=== PATIENT | female | born 1970 | race Caucasian/White ===

== ENCOUNTER 2021-03-01 14:47 | Outpatient (REF) | payer BC, SELFPAY ==
--- NOTE | ~2021-03-01 | XR_ITS ---
EXAMINATION: XR KNEE STANDING, BILATERAL XR KNEE, RIGHT CLINICAL INFORMATION: Right knee pain. COMPARISON: None TECHNIQUE: AP standing view of both knees and lateral and sunrise views of the right knee FINDINGS: AP film of both knees demonstrates maintenance of the medial and lateral joint space compartments. There is some irregularity of the right lateral tibial plateau. There is a small right knee effusion. There is spurring undersurface of the patella at the patellofemoral joint. No joint space narrowing at the patellofemoral joint is noted. XR/XR knee standing BI IMPRESSION: Patellofemoral joint degenerative change with small right knee effusion. There is some mild irregularity without significant loss of height of the lateral tibial plateau. This may be related to chronic injury.
--- NOTE | ~2021-03-01 | XR_ITS ---
EXAMINATION: XR KNEE STANDING, BILATERAL XR KNEE, RIGHT CLINICAL INFORMATION: Right knee pain. COMPARISON: None TECHNIQUE: AP standing view of both knees and lateral and sunrise views of the right knee FINDINGS: AP film of both knees demonstrates maintenance of the medial and lateral joint space compartments. There is some irregularity of the right lateral tibial plateau. There is a small right knee effusion. There is spurring undersurface of the patella at the patellofemoral joint. No joint space narrowing at the patellofemoral joint is noted. XR/XR knee RT 2V IMPRESSION: Patellofemoral joint degenerative change with small right knee effusion. There is some mild irregularity without significant loss of height of the lateral tibial plateau. This may be related to chronic injury.
== END 2021-03-01 14:48 | disposition home or self-care (01) ==
LOC: HO.HOSX 14:47
PROVIDERS: Visit Provider Orthopaedic Surgery
DX: S83.422A Sprain of lateral collateral ligament of left knee, initial encounter (principal); M25.561 Pain in right knee; X58.XXXA Exposure to other specified factors, initial encounter; Y93.9 Activity, unspecified; Y92.9 Unspecified place or not applicable; Y99.9 Unspecified external cause status
CPT/HCPCS: 73560; 73565

== ENCOUNTER 2022-11-17 08:42 | Emergency (ER) | payer BC, SELFPAY ==
--- NOTE | ~2022-11-17 | CT_ITS ---
EXAMINATION: Head, cervical spine and facial bone CT without IV contrast CLINICAL INFORMATION: Trauma COMPARISON: None. TECHNIQUE: Axial images through the head, cervical spine and facial bones without IV contrast. Sagittal and coronal reconstructions on the technologist workstation were performed. This CT examination was performed using dose optimization techniques as appropriate, variously including the following: *Automated exposure control *Adjustment of mA and/or kV according to patient size (this includes techniques or standardized protocols for targeted exams where dose is matched to indication/reason for exam; i.e. extremities or head) *Use of iterative reconstruction technique DLP 173 7 mg/cm FINDINGS: Head CT: There is no evidence of an extra-axial collection. There is no evidence of intra or extra-axial hemorrhage. The ventricles and extra-axial CSF spaces are slightly prominent suggestive of mild generalized atrophy. There is nonspecific periventricular white matter disease. No mass, mass effect or infarct. No skull fracture. Small air-fluid level left maxillary sinus. Preseptal soft tissue swelling over the left orbit. Left orbital floor fracture with entrapment. Facial bone CT: Exam is limited due to artifact from motion. There is a comminuted displaced fracture of the left orbital floor. Fracture fragments are depressed maximum measuring 7 mm. There is evidence of entrapment. There is question of a fracture of the nasal spine of maxilla. No other fracture is seen. There is a small air-fluid level in the left maxillary sinus. Paranasal sinuses are otherwise clear. There is preseptal soft tissue swelling over the left orbit. Post septal soft tissues are normal. Mastoid air cells and middle ears are clear. Temporomandibular joints are normal. Cervical spine: The skull base through C6 vertebral bodies are visualized. The C7 vertebral body is not visualized. Bone alignment is normal. No fracture or dislocation. Mild degenerative spondylosis at C4-C5 and C5-C6 and possibly C6-C7. There are degenerative changes at the C1 dens articulation. Prevertebral soft tissues are normal. CT/CT cervical spine wo IV con IMPRESSION: Head CT: No acute intracranial findings. Facial bone CT: Comminuted depressed fracture of the left orbital or and entrapment Arturo significant preseptal soft tissue swelling over the left orbit. Question tiny avulsion fracture of the right nasal spine of maxilla. Cervical spine CT: Incomplete exam. C7 vertebral body not visualized. No fracture is seen. Mild degenerative changes. Additional through the lower cervical and upper thoracic spine should be considered if clinically indicated.
[2022-11-17 08:48] VITALS: BP 186/81; PULSE 90; RESP 14; TEMP 36.6; O2SAT 96; BMI 40.8
--- NOTE | 2022-11-17 09:05 | ED.FALL ---
HPI - Fall General Chief Complaint: Fall Stated Complaint: Fall w/ head strike per EMS Source: patient Mode of arrival: ambulatory Limitations: no limitations History of Present Illness HPI Narrative: presented to ED c/o fall,slipped and fell,no syncope,hit head in the ground,has hematoma left orbit complaint: fall Onset (ago): hour(s) (1) Fall from: standing Fall witnessed: no Loss of consciousness: none Prolonged down time: no Related Data Home Medications Medication Instructions Recorded Confirmed amlodipine 5 mg-benazepril 10 mg 1 cap PO DAILY 03/01/21 capsule atorvastatin 40 mg tablet 40 mg PO DAILY 03/01/21 beclomethasone dipropionate 80 1 inh PO BID 03/01/21 mcg/actuation HFA breath activated aerosol benzonatate 100 mg capsule 100 mg PO TID 03/01/21 bupropion HCl 300 mg 24 hr tablet, 300 mg PO DAILY 03/01/21 extended release cyclobenzaprine 10 mg tablet 10 mg PO TID PRN 03/01/21 llxzyvhvrpcdrbl-LJC-vytjrhqvrjlhy packet PO 03/01/21 50 mg-60 mg-1,000 mg oral packet dulaglutide 0.75 mg/0.5 mL 1.5 mg subcut QWEEK 03/01/21 subcutaneous pen injector erythromycin 5 mg/gram (0.5 %) eye 0 mg ophthalmic (eye) DIRECTED 03/01/21 ointment escitalopram oxalate 10 mg tablet mg PO 03/01/21 flash glucose sensor #1 ea 03/01/21 fluticasone propionate 50 1 spray intranasal BID 03/01/21 mcg/actuation nasal spray,suspension ibuprofen 800 mg tablet 800 mg PO Q8H 03/01/21 insulin glargine 100 unit/mL (3 80 unit subcut BEDTIME 03/01/21 mL) subcutaneous pen metformin 1,000 mg tablet 1,000 mg PO BID 03/01/21 methylprednisolone 4 mg tablet mg PO DIRECTED 03/01/21 pen needle, diabetic 29 gauge x #100 ea 03/01/21 1/2 pen needle, diabetic 31 gauge x #50 ea 03/01/21 3/16 pregabalin 25 mg capsule 25 mg PO BEDTIME 03/01/21 pregabalin 25 mg capsule (Lyrica) 25 mg PO DAILY 03/01/21 Allergies Allergy/AdvReac Type Severity Reaction Status Date / Time codeine [CODEINE] Allergy Mild STOMACH Verified 03/01/21 15:01 UPSET latex [LATEX] Allergy Unknown ANAPHYLAXIS Verified 03/01/21 15:01 Review of Systems Constitutional: Constitutional: Reports no additional constitutional complaints Eyes: Eyes: Reports other (left orbital edema) Cardiovascular: Cardiovascular: Reports no additional cardiovascular complaints Respiratory: Respiratory: Reports no additional respiratory complaints Gastrointestinal: Gastrointestinal: Reports no additional gastrointestinal complaints Genitourinary: Genitourinary: Reports no additional female genitourinary complaints [facility] Past Medical History [facility] Narrative: DM/depression Medical History Colorectal cancer Depressed Diabetes Hyperlipemia Neuropathy Surgical History History of arthroscopy of right knee Social History Social History (Updated 03/01/21 @ 15:04 by Jayden Hooper) Advance Directives: No Current occupational status: employed Current occupation: rt handed/[employer] Physical Exam Vital Signs: Vital Signs: Last Vital Signs Temp 97.9 F 11/17/22 08:48 Pulse 90 11/17/22 08:48 Resp 14 11/17/22 08:48 BP 186/81 H 11/17/22 08:48 Pulse Ox 96 11/17/22 08:48 O2 Del Method Room Air 11/17/22 08:48 BMI result Body Mass Index 40.8 Const: General: cooperative Nutritional Appearance: average body habitus and well nourished HEENT: Head: Yes other (left orbital hematoma) General nose exam: Normal external nose present Face and sinus: Yes normal facial exam Mouth: Normal oral and palatal mucosa present Throat: Yes posterior oropharynx normal Neck: Neck: Yes normal visual inspection and Yes full ROM Chest: Chest palpation & inspection: normal inspection of the chest Resp: Effort & Inspection: normal respiratory effort and able to speak in complete sentences Auscultation: clear to auscultation bilaterally Cardio: Jugular venous distension: no JVD Rate: regular rate Rhythm: regular rhythm GI: Inspection: Yes normal to inspection Palpation (GI): Soft to palpation, not firm and nontender Auscultation: normal bowel sounds Skin: General skin exam: no rashes or lesions noted and elasticity normal Rashes: no rashes Course Reevaluation(s) Reevaluation #1: CT scan of the orbit shows left orbital fracture with entrapment I placed a call to [facility] at this time Time: 10:46 Reevaluation #2: Lexi from [facility] states they can not take the pt Time: 10:50 Reevaluation #3: [facility] unable to take pt as well,Jack can not take pt Time: 10:58 Additional Reevaluation(s): [facility] accepted the pt Dr Davis Medical Decision Making Medical Decision Making MDM Narrative: presented after mechanical fall has left orbital hematoma will get head ct/orbital ct Differential Diagnosis Differential Diagnoses: The differential diagnosis associated with the presentation includes fx orbit/subdural hematoma Consult Healthcare Provider called [facility]/Jack accepted by [facility] Radiology Impression Discussion of test interpretation with radiology: I discussed test interpretation with the radiologist and I have reviewed the radiologist's reading. Radiologist Impression: ?alignment is normal. No fracture or dislocation. Mild degenerative spondylosis at C4-C5 and C5-C6 and possibly C6-C7. There are degenerative changes at the C1 dens articulation. Prevertebral soft tissues are normal.? CT/CT facial bones wo IV con IMPRESSION: Head CT: No acute intracranial findings. ? Facial bone CT: Comminuted depressed fracture of the left orbital or and entrapment Arturo significant preseptal soft tissue swelling over the left orbit. Question tiny avulsion fracture of the right nasal spine of maxilla. ? Cervical spine CT: Incomplete exam. C7 vertebral body not visualized. No fracture is seen. Mild degenerative changes. Additional through the lower cervical and upper thoracic spine should be considered if clinically indicated. Dictated By: Sabrina De Leon MD Signed By: <Electronically signed by Sabrina De Leon MD in OV> 11/17/22 1030 FINDINGS: Head CT: There is no evidence of an extra-axial collection. There is no evidence of intra or extra-axial hemorrhage. The ventricles and extra-axial CSF spaces are slightly prominent suggestive of mild generalized atrophy. There is nonspecific periventricular white matter disease. No mass, mass effect or infarct. No skull fracture. Small air-fluid level left maxillary sinus. Preseptal soft tissue swelling over the left orbit. Left orbital floor fracture with entrapment. Facial bone CT: Exam is limited due to artifact from motion. There is a comminuted displaced fracture of the left orbital floor. Fracture fragments are depressed maximum measuring 7 mm. There is evidence of entrapment. There is question of a fracture of the nasal spine of maxilla. No other fracture is seen. There is a small air-fluid level in the left maxillary sinus. Paranasal sinuses are otherwise clear. There is preseptal soft tissue swelling over the left orbit. Post septal soft tissues are normal. Mastoid air cells and middle ears are clear. Temporomandibular joints are normal. Prescription Management I considered prescription management with: Pain Medication Discharge Plan Discharge Clinical Impression: Orbital floor fracture Patient Disposition: [facility] Prescriptions: No Action (DME) FreeStyle Bridgette 14 Day Sensor Kit See Rx Instructions topical Q2W Qty: 1 Rx Instructions: As directed metformin 1,000 mg tablet 1,000 mg PO BID atorvastatin 40 mg tablet 40 mg PO DAILY Trulicity 0.75 mg/0.5 mL pen injector 1.5 mg subcut QWEEK bupropion HCl 300 mg tablet extended release 24 hr 300 mg PO DAILY (DME) pen needle, diabetic 31 gauge x 3/16 needle See Rx Instructions subcut DIRECTED Qty: 50 Rx Instructions: As directed escitalopram oxalate 10 mg tablet PO fluticasone propionate 50 mcg/actuation spray,suspension 1 spray intranasal BID pregabalin 25 mg capsule 25 mg PO BEDTIME Qvar RediHaler 80 mcg/actuation HFA aerosol breath activated 1 inh PO BID amlodipine-benazepril 5-10 mg capsule 1 cap PO DAILY erythromycin 5 mg/gram (0.5 %) ointment 0 mg ophthalmic (eye) DIRECTED benzonatate 100 mg capsule 100 mg PO TID methylprednisolone 4 mg tablet PO DIRECTED cyclobenzaprine 10 mg tablet 10 mg PO TID PRN Lantus Solostar U-100 Insulin 100 unit/mL (3 mL) insulin pen 80 unit subcut BEDTIME (DME) pen needle, diabetic 29 gauge x 1/2 needle See Rx Instructions .ROUTE .MEDSUPPLY Qty: 100 Rx Instructions: As directed ibuprofen 800 mg tablet 800 mg PO Q8H jxdcuwjfxvae-IQE-npsiznnsvqcol 50-60-1,000 mg packet PO pregabalin [Lyrica] 25 mg capsule 25 mg PO DAILY
--- NOTE | 2022-11-17 10:54 | MHC.EDTECH ---
@1045 called [facility] transfer line per request of Dr. Berrios. Gave pt demographics and a call back number. The individual requested to speak with Dr. Berrios. Dr. Berrios took the call right away. Dr. Berrios notified me that [facility] declined to take the pt.
--- NOTE | 2022-11-17 10:56 | MHC.EDTECH ---
@1050 called [facility] transfer line per request of Dr. Berrios. Gave pt demographics and a call back number. The individual requested to speak with Dr. Berrios. Dr. Berrios takes the call right away. Dr. Berrios notifies me that the pt was declined by [facility].
--- NOTE | 2022-11-17 11:03 | MHC.EDTECH ---
@1102 called [facility] transfer line per request of Dr. Berrios. The individual on the phone said they were closed to all transfers due to capacity and recommended we call [facility]. I notifed Dr. Berrios that [facility] declined the patient.
--- NOTE | 2022-11-17 11:09 | MHC.EDTECH ---
@1104 called [facility] transfer line per request of Dr. Berrios. The individual on the phone took pt demographics. He then requested to speak with Dr. Berrios. Dr. Berrios took the call right away. @11:11 Dr. Berrios notified me that the pt was accepted to [facility]. Accepting Doctor is Dr. Riggins.
[2022-11-17] MEDS: ondansetron HCL 4 MG/2 ML VIAL IVPUSH (11:34)
--- NOTE | 2022-11-17 11:48 | PC.NURSE ---
report given to isaiah alonso
[2022-11-17 11:54] VITALS: BP 149/63; PULSE 90; RESP 14; O2SAT 96
[2022-11-17 11:56] VITALS: RESP 14
[2022-11-17] MEDS: HYDROmorphone HCl 0.5 MG/0.5 ML SYRINGE IVPUSH (11:56)
== END 2022-11-17 11:59 | disposition short-term general hospital (02) ==
PROVIDERS: Emergency Provider Emergency Medicine; PCP Nurse Practitioner Family
DX: S02.32XA Fracture of orbital floor, left side, initial encounter for closed fracture (principal); W19.XXXA Unspecified fall, initial encounter; H05.222 Edema of left orbit; E11.9 Type 2 diabetes mellitus without complications; E78.5 Hyperlipidemia, unspecified; Z79.02 Long term (current) use of antithrombotics/antiplatelets; Z79.899 Other long term (current) drug therapy; Z79.4 Long term (current) use of insulin; Y93.9 Activity, unspecified; Y92.9 Unspecified place or not applicable; Y99.9 Unspecified external cause status
CPT/HCPCS: 70450; 70486; 72125; 96374; 96375; 99284; 99285; J1170; J2270; J2405

== ENCOUNTER → 2022-12-05 12:31 | Outpatient (BNVA) | payer BC, SELFPAY | PROVIDERS: PCP Nurse Practitioner Family; Visit Provider Internal Medicine Endocrinology, Diabetes & Metabolism | DX: E11.65 Type 2 diabetes mellitus with hyperglycemia (principal); Z79.4 Long term (current) use of insulin | CPT/HCPCS: 82947 ==

== ENCOUNTER → 2022-12-06 13:10 | Outpatient (BNVA) | payer BC, SELFPAY | PROVIDERS: PCP Nurse Practitioner Family; Visit Provider Dietitian, Registered | DX: E11.65 Type 2 diabetes mellitus with hyperglycemia (principal); Z71.3 Dietary counseling and surveillance | CPT/HCPCS: 97802 ==

== ENCOUNTER 2023-03-13 14:43 | Outpatient (AMB) | payer BC, SELFPAY ==
--- NOTE | 2023-03-13 14:46 | MHC.OFFVIS ---
Intake Vital Signs 03/13/23 14:47 Height 5 ft 4 in Weight 240 lb 8.389 oz BMI 41.3 BP 122/72 Blood Pressure Location Lt brachial Position Sitting Pulse 82 Pulse Source Pulse Oximeter Intake Visit Reasons: DM Intake Note: Patient present today to follow up on Type 2 Diabetes Mellitus. Patient receives DME supplies through: Pharmacy Last Diabetic Eye exam: November 2022 Last Podiatry Visit: Does not see a Senior Procurement Manager Random Glucose:199 mg/dl HgA1C: 7.9% Aluminum Container Tester Required: No Accompanied by: Self / Same As Patient Allergies codeine [CODEINE] Allergy (Mild, Verified 03/13/23 14:52) STOMACH UPSET latex [LATEX] Allergy (Unknown, Verified 03/13/23 14:52) ANAPHYLAXIS HPI HPI Comments History of Present Illness Details 52 YO F who is seen in consultation for T2DM at the request of PCP. Initially diagnosed with T2DM in 30yrs . Dxed after gestational DM Was initially started on treatment with []. Current regimen Tresiba 70 units units Novolog 15-20 units Ac based on carbs metformin 1000 mg BID . Ozempic 0.5 mg Qwkly Per the CGM / Dexcom CGMS is active 86 % of time . d Avg glucose is 249 . Variability of 75 The patient's blood sugars were in target 20% of the time, above eztrey96 % of the time, and below target 0% of the time. pattern shows elevation all day Reports low sugars couple of times/mo . Treats lows with juice , penut butter cracles . Checks sugar after to ensure it is rising. Treats according to rule of 15's. Family history of T2DM in mother, grandmother . Has eyes checked yearly, last eye exam 2 wks ago , has moderate retinopathy.Sees retinal specialist in 03/2023 Has neuropathy,Not sees podiatry. Denies nephropathy, onARB.. Has HLD, on statin. Denies CAD. Had diabetes education.Not recently [facility] Medical History (Updated 12/05/22 @ 12:52 by Sammy Bentley MD) Colorectal cancer Depressed Diabetes Hyperlipemia Neuropathy Uncontrolled type 2 diabetes mellitus with hyperglycemia Surgical History History of arthroscopy of right knee Social History Current occupational status: employed Current occupation: rt handed/[employer] Physical Exam Vital Signs: Last Vital Signs Pulse 82 03/13/23 14:47 BP 122/72 03/13/23 14:47 BMI result Body Mass Index 41.3 Absence of Cushingoid features. Absence of acromegalic features. Neck exam reveals nl size thyroid about 15 gms. No thyroid nodules palpable. No carotid bruits present. Lungs CTA. Heart S1 S2, Reg R/R. No M/R/ G. Skin exam reveals absence of vitiligo or acanthosis nigricans. Abdominal exam reveals Soft NT/ND with NA BS. No organomegaly present. Neck Other: . Extrem Other: Visual exam of foot performed. No ulcerations or open lesions. No onchomycosis, no callouses.Pulses 2 + distally Sensation intact to monofilament exam. Vibratory sensation sensed is decreased with 128 Hz tuning fork Results AMB Hemoglobin A1c AMB Hemoglobin A1c 7.9 % Last Edit by JOSE Perez on 03/13/23 15:11 Results Reviewed Results Reviewed: 03/13/23 15:00 Glucose, Whole Blood Routine Laboratory Last Values Glucose (Clinic) 199 mg/dL (60-115) H 03/13/23 15:00 Hgb A1c (Clinic) 7.9 % (4.0-6.0) H 03/13/23 15:10 Assessment & Plan Assessment & Plan (1) Uncontrolled type 2 diabetes mellitus with hyperglycemia: Code(s): E11.65 - Type 2 diabetes mellitus with hyperglycemia Plan: This is a 52 yo female with a hx of Type 2 DM on metformin, Trulicity and basal-bolus insulin with poor glycemic control and known microvascular complications namely neuropathy and retinopathy The plan is to switch the Ozempic to Victoza 1.8 mcg q.d. S patient is not responding to Ozempic. Also, patient has mild to moderate retinopathy which is a relative contraindication to Ozempic. If patient does not respond to Victoza as failed 3 G LP 1 agonist, she would benefit greatly from Mounjaro which will then try to obtain. For now, could also increase the Tresiba to 70 units Orders: Orders AMB Hemoglobin A1c Today E11.65 - Type 2 diabetes mellitus with hyperglycemia Medications: New liraglutide (Victoza 3-Quintin) 1.8 mg (0.3 mL) subcut Q24H 9 mL 5RF Discontinued semaglutide (Ozempic) Discontinued Reason: Doctor's Order 0.5 mg (0.736 mL) subcut QWEEK 3 mL 4RF Coding Level of Care Code Est Pt Level 4 (91664) Diagnoses Uncontrolled type 2 diabetes mellitus with hyperglycemia E11.65
[2023-03-13 14:47] VITALS: BP 122/72; PULSE 82; BMI 41.3
[2023-03-13 15:06] LABS: Glucose, Whole Blood 199 mg/dL (60-115)
== END 2023-03-13 15:29 | disposition home or self-care (01) ==
PROVIDERS: PCP Nurse Practitioner Family; Visit Provider Internal Medicine Endocrinology, Diabetes & Metabolism
DX: E11.65 Type 2 diabetes mellitus with hyperglycemia (principal)
CPT/HCPCS: 99214

== ENCOUNTER → 2023-03-13 14:43 | Outpatient (BNVA) | payer BC, SELFPAY | PROVIDERS: Visit Provider Internal Medicine Endocrinology, Diabetes & Metabolism | DX: E11.65 Type 2 diabetes mellitus with hyperglycemia (principal); E11.40 Type 2 diabetes mellitus with diabetic neuropathy, unspecified; E78.5 Hyperlipidemia, unspecified; Z86.32 Personal history of gestational diabetes; Z83.3 Family history of diabetes mellitus; Z79.4 Long term (current) use of insulin | CPT/HCPCS: 82947; 83036 ==

== ENCOUNTER 2023-03-30 14:23 | Outpatient (AMB) | payer BC, SELFPAY ==
--- NOTE | 2023-03-30 14:41 | A.OFFVIS_ITS ---
Intake Intake Visit Reasons: f/u Type 2 DM Chiropractor Sole Practitioner Required: No Accompanied by: Self / Same As Patient Allergies codeine [CODEINE] Allergy (Mild, Verified 03/13/23 14:52) STOMACH UPSET latex [LATEX] Allergy (Unknown, Verified 03/13/23 14:52) ANAPHYLAXIS HPI Comprehensive Diabetes Asmnt Most Recent Diabetes Results: No Data to Display [facility] Medical History (Updated 12/05/22 @ 12:52 by Sammy Bentley MD) Colorectal cancer Depressed Diabetes Hyperlipemia Neuropathy Uncontrolled type 2 diabetes mellitus with hyperglycemia Surgical History History of arthroscopy of right knee Social History Current occupational status: employed Current occupation: rt handed/[employer] Assessment & Plan Assessment & Plan (1) Uncontrolled type 2 diabetes mellitus with hyperglycemia: Code(s): E11.65 - Type 2 diabetes mellitus with hyperglycemia Plan: Personal Continuous Glucose Monitor: Patients CGM information reviewed Reviewed patient's sensor data: Hypoglycemia: ?0% Hyperglycemia:? 49% Time in Range:? 51% Average glucose for the last 2 weeks 181? mg/dL Patient started Mounjaro 2.5 mg a week ago. 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 Discussed lag time between finger stick and sensor data.? Patient able to insert sensor independently at home without issue.? Patient Instructions: Patient instruction: CGM provides information on blood glucose control throughout the day, including hyperglycemia and hypoglycemia. ? Continue to monitor blood glucose as instructed. Follow nutrition guidelines provided. Report any discomfort promptly to health care provider. ?Stay well-hydrated. You can bathe ,shower, swim and exerce while wearing the glucose sensor. Do not submerge glucose sensor in water for more than 30 minutes. Remove sensor for MRI or CAT scan. Avoid Xray machine in airports - remove sensor or request wand Patient will not set up another appointment at this time but will call with questions or concerns Coding Level of Care Code Est Pt Level 1 (88175) Diagnoses Uncontrolled type 2 diabetes mellitus with hyperglycemia E11.65
== END 2023-03-30 16:09 | disposition home or self-care (01) ==
PROVIDERS: PCP Nurse Practitioner Family; Visit Provider Registered Nurse Diabetes Educator
DX: E11.65 Type 2 diabetes mellitus with hyperglycemia (principal)

== ENCOUNTER → 2023-03-30 14:23 | Outpatient (BNVA) | payer BC, SELFPAY | PROVIDERS: PCP Nurse Practitioner Family; Visit Provider Registered Nurse Diabetes Educator | DX: E11.65 Type 2 diabetes mellitus with hyperglycemia (principal) | CPT/HCPCS: 99211 ==

== ENCOUNTER 2023-11-07 08:03 | Outpatient (AMB) | payer SELFPAY ==
[2023-11-07 08:05] VITALS: BP 90/62; PULSE 87; BMI 37.3
--- NOTE | 2023-11-07 08:05 | A.OFFVIS_ITS ---
Intake Vital Signs 11/07/23 08:05 Height 5 ft 4 in Weight 217 lb 9.54 oz BMI 37.3 BP 90/62 Blood Pressure Location Lt brachial Position Sitting Pulse 87 Pulse Source Pulse Oximeter Intake Visit Reasons: T2DM Intake Note: Patient presents today to follow up on D2MT. Last Diabetic Eye exam: 09/2022 Last Podiatry Visit: Doesn't have one Random Glucose: 258 mg/dl HgA1c: 9.3% Supervisor Covering And Lining Required: No Accompanied by: Self / Same As Patient Allergies codeine [CODEINE] Allergy (Mild, Verified 11/07/23 08:10) STOMACH UPSET latex [LATEX] Allergy (Unknown, Verified 11/07/23 08:10) ANAPHYLAXIS Medication List - Last Reconciled 11/07/23 by Sammy Bentley MD amlodipine-olmesartan 5-20 mg 1 tab PO DAILY beclomethasone dipropionate 80 mcg/actuation 1 inh PO BID bupropion HCl 450 mg PO DAILY cyclobenzaprine 10 mg PO TID PRN [id number] 50-60-1,000 mg packets PO escitalopram oxalate mg PO flash glucose sensor As directed fluticasone propionate 50 mcg/actuation 1 spray intranasal BID glucagon 3 mg/actuation (Baqsimi) 3 mg intranasal ONCE ibuprofen 800 mg PO Q8H insulin degludec (Tresiba FlexTouch U-200 insulin) 60 units subcut BEDTIME metformin 1,000 mg PO BID pen needle, diabetic As directed pen needle, diabetic As directed 4 times day tirzepatide (Mounjaro) 5 mg (0.5 mL) subcut QWEEK HPI HPI Comments History of Present Illness Details 53 YO F who is seen in consultation for T2DM at the request of PCP. Initially diagnosed with T2DM in 30yrs . Dxed after gestational DM Was initially started on treatment with []. Current regimen Tresiba 72 units units Novolog 15-20 units Ac based on carbs metformin 1000 mg BID . Mounjaro 5 mg Qwkly Unfortunately, the patient does not use the sensor over the last 3 weeks because of insurance issues so there is no data Reports low sugars couple of times/mo . Treats lows with juice , penut butter cracles . Checks sugar after to ensure it is rising. Treats according to rule of 15's. Family history of T2DM in mother, grandmother . Has eyes checked yearly, last eye exam last yr , has moderate retinopathy.Sees retinal specialist in 03/2023 . Needs to make appt Has neuropathy,Not sees podiatry. Denies nephropathy, onARB.. Has HLD, on statin. Denies CAD. Had diabetes education.Not recently [facility] Medical History (Updated 12/05/22 @ 12:52 by Sammy Bentley MD) Uncontrolled type 2 diabetes mellitus with hyperglycemia Colorectal cancer Neuropathy Hyperlipemia Depressed Diabetes Surgical History History of arthroscopy of right knee Social History Current occupational status: employed Current occupation: rt handed/[employer] Physical Exam Vital Signs: Last Vital Signs Pulse 87 11/07/23 08:05 BP 90/62 11/07/23 08:05 BMI result Body Mass Index 37.3 Absence of Cushingoid features. Absence of acromegalic features. Neck exam reveals nl size thyroid about 15 gms. No thyroid nodules palpable. No carotid bruits present. Lungs CTA. Heart S1 S2, Reg R/R. No M/R/ G. Skin exam reveals absence of vitiligo or acanthosis nigricans. Abdominal exam reveals Soft NT/ND with NA BS. No organomegaly present. Neck Other: . Extrem Other: Visual exam of foot performed. No ulcerations or open lesions. No onchomycosis, no callouses.Pulses 2 + distally Sensation intact to monofilament exam. Vibratory sensation sensed is decreased with 128 Hz tuning fork Results AMB Hemoglobin A1c AMB Hemoglobin A1c 9.3 % Last Edit by JOSE Do on 11/07/23 08:39 Results Reviewed Results Reviewed: Laboratory Last Values Glucose (Clinic) 258 mg/dL (60-115) H 11/07/23 08:13 Assessment & Plan Assessment & Plan (1) Uncontrolled type 2 diabetes mellitus with hyperglycemia: Code(s): E11.65 - Type 2 diabetes mellitus with hyperglycemia Plan: This is a 52 yo female with a hx of Type 2 DM on metformin, Mounjaro and basal- bolus insulin with poor glycemic control and known microvascular complications namely neuropathy and retinopathy The plan is to reinitiate the sensor and upgrade to Dexcom G7. Will increase Mounjaro to 7.5 mg Q weekly. Most likely, patient will need re-initiation of prandial insulin but do not have data today to do this. She will follow-up with the para educator after obtaining more sensor data. Also took the liberty of referring her to emergency planning and response manager. We will also recheck lipid profile and microalbumin to creatinine ratio Orders: Orders AMB Hemoglobin A1c Today E11.65 - Type 2 diabetes mellitus with hyperglycemia, Z13.9 - Encounter for screening, unspecified Referrals Podiatry Referral E11.65 - Type 2 diabetes mellitus with hyperglycemia Medications: New blood-glucose sensor (Dexcom G7 Sensor device) As directed change every 10 days 3 ea 5RF tirzepatide (Mounjaro) 7.5 mg (0.5 mL) subcut QWEEK 2 mL 5RF Discontinued tirzepatide (Mounjaro) Discontinued Reason: Doctor's Order 5 mg (0.5 mL) subcut QWEEK 2 mL 3RF Coding Level of Care Code Est Pt Level 4 (85552) Diagnoses Uncontrolled type 2 diabetes mellitus with hyperglycemia E11.65
[2023-11-07 08:17] LABS: Glucose, Whole Blood 258 mg/dL (60-115)
== END 2023-11-07 08:40 | disposition home or self-care (01) ==
PROVIDERS: PCP Nurse Practitioner Family; Visit Provider Internal Medicine Endocrinology, Diabetes & Metabolism
DX: Z13.9 Encounter for screening, unspecified (principal); E11.65 Type 2 diabetes mellitus with hyperglycemia
CPT/HCPCS: 99214

== ENCOUNTER → 2023-11-07 08:03 | Outpatient (BNVA) | payer BC, SELFPAY | PROVIDERS: PCP Nurse Practitioner Family; Visit Provider Internal Medicine Endocrinology, Diabetes & Metabolism | DX: E11.65 Type 2 diabetes mellitus with hyperglycemia (principal); Z79.4 Long term (current) use of insulin | CPT/HCPCS: 82947; 83036 ==

== ENCOUNTER 2023-11-14 07:00 | Outpatient (REF) | payer BC, SELFPAY ==
[2023-11-14 08:45] LABS: Creatinine Urine 82.24 mg/dL; Microalbum/Creatinine Ratio Ur 8.5 ug/mg cr (<30)
[2023-11-14 08:54] LABS: Anion Gap 15 (12-20); Blood Urea Nitrogen 24 mg/dL (9-16); Calcium 9.9 mg/dL (8.4-10.2); Carbon Dioxide 24 mmol/L (22-29); Chloride 103 mmol/L (96-108); Cholesterol 127 mg/dL (<200); Estimated Glomerular Filt Rate 44; Glucose Random 202 mg/dL (60-115); HDL Cholesterol 52 mg/dL (>40); LDL Cholesterol Calculated 43 mg/dL (<100); Potassium 4.9 mmol/L (3.3-5.1); Sodium 137 mmol/L (135-145); Triglycerides 160 mg/dL (<150)
== END 2023-11-14 07:01 | disposition home or self-care (01) ==
LOC: HO.LAB 07:00
PROVIDERS: Absent Provider Internal Medicine Endocrinology, Diabetes & Metabolism; PCP Nurse Practitioner Family; Visit Provider Registered Nurse Diabetes Educator
DX: E11.65 Type 2 diabetes mellitus with hyperglycemia (principal)
CPT/HCPCS: 36415; 80048; 80061; 82043; 82570; 99211

== ENCOUNTER 2023-11-14 07:00 | Outpatient (AMB) | payer BC, SELFPAY ==
--- NOTE | 2023-11-14 07:06 | A.OFFVIS_ITS ---
Intake Intake Visit Reasons: T2DM Stage Hand Required: No Accompanied by: Self / Same As Patient Allergies codeine [CODEINE] Allergy (Mild, Verified 11/07/23 08:10) STOMACH UPSET latex [LATEX] Allergy (Unknown, Verified 11/07/23 08:10) ANAPHYLAXIS HPI Comprehensive Diabetes Asmnt Most Recent Diabetes Results: Microalb/Creat Ratio Pending 11/14/23 Cholesterol Pending 11/14/23 HDL Cholesterol Pending 11/14/23 Triglycerides Pending 11/14/23 Creatinine Pending 11/14/23 Blood Urea Nitrogen Pending 11/14/23 Sodium Pending 11/14/23 Potassium Pending 11/14/23 Chloride Pending 11/14/23 Carbon Dioxide Pending 11/14/23 Calcium Pending 11/14/23 [facility] Medical History (Updated 12/05/22 @ 12:52 by Sammy Bentley MD) Uncontrolled type 2 diabetes mellitus with hyperglycemia Colorectal cancer Neuropathy Hyperlipemia Depressed Diabetes Surgical History History of arthroscopy of right knee Social History Current occupational status: employed Current occupation: rt handed/[employer] Assessment & Plan Assessment & Plan (1) Uncontrolled type 2 diabetes mellitus with hyperglycemia: Code(s): E11.65 - Type 2 diabetes mellitus with hyperglycemia Plan: Learning objectives: The patient was provided with verbal and written education on the following topics as outlined below. Assess patient education level/literacy/barriers Patient questions/concerns, Dexcom G7 sensors given to patient by Dr. Bentley report both no working. Today's is a gave patient new Dexcom G7 sensor, patient inserted in upper right arm. Patient left visit with Dexcom G7 sensor in warmup. Check to make sure patient was sharing in Dexcom clarity. Patient has not been able to Mounjaro 7.5 mg, because is back ordered Patient will follow-up with practicing md anesthesiologist in 1 month The patient met all learning objectives and was able to verbalize understanding and provide teach back of education topics discussed . The patient was provided with the opportunity to ask questions and all questions were answered. Topics covered in today?s session included: Insulin/Injectables (If applicable) * Storage/care of insulin?? * Injection sites? * Site rotation? * Onset, peak, duration * Drawing up insulin? * Injecting insulin/other injectables? * Sharps disposal Continuous blood glucose monitoring (if applicable) * Blood glucose targets and how you feel when your blood glucose is in and out of your target ranges. * Monitoring and knowing your A1C. * What can make blood glucose go up and down and preventing high and low blood glucose. * Review of blood sugar targets in expected goal range and outside of expected goal range. * Problem solving and preventing hyper/hypoglycemia. * Using blood sugar results in decision making process in managing diabetes. ?Patient was receptive to information provided and participated in the discussion. Asked?appropriate questions and demonstrated good understanding of the topics discussed.? ? Patient Response to instructions: Comprehension of Instructions: good Readiness to make changes:? Contemplation How confident they feel about making changes: good Coding Level of Care Code Est Pt Level 1 (61889) Diagnoses Uncontrolled type 2 diabetes mellitus with hyperglycemia E11.65
== END 2023-11-14 07:26 | disposition home or self-care (01) ==
PROVIDERS: PCP Nurse Practitioner Family; Visit Provider Registered Nurse Diabetes Educator
DX: E11.65 Type 2 diabetes mellitus with hyperglycemia (principal)

== ENCOUNTER 2024-03-21 14:15 | Outpatient (AMB) | payer OTHER, SELFPAY ==
[2024-03-21 14:22] VITALS: BP 102/46; PULSE 68; BMI 39.4
--- NOTE | 2024-03-21 14:22 | A.OFFVIS_ITS ---
Vital Signs 03/21/24 14:22 Height 5 ft 4 in Weight 229 lb 4.492 oz BMI 39.4 BP 102/46 L Blood Pressure Location Lt brachial Position Sitting Pulse 68 Pulse Source Pulse Oximeter Intake Visit Reasons: f/u Type 2 DM/hyperlipidemia/CONFIRMED Intake Note: New Patient presents today to establish treatment for Type 2 Diabetes Mellitus & Hyperlipidemia: Last Diabetic eye exam was on: 2022 Last Podiatry exam was on: Does not see a Automatic Vulcanizing Operator Most recent HbA1c: 7.6% Random Glucose- 210 mg/dL Accounts Payables Clerk Required: No Accompanied by: Self / Same As Patient Allergies codeine [CODEINE] Allergy (Mild, Verified 03/21/24 14:31) STOMACH UPSET latex [LATEX] Allergy (Unknown, Verified 03/21/24 14:31) ANAPHYLAXIS HPI Comments Details: 53 YO F who is seen in f/u for T2DM. Torrie roblero was last seen by Dr. Bentley in November 2023. She had an insurance change since that time and has had difficulty getting sensors and Mounjaro. She was last on Mounjaro 3 weeks ago. Last A1c on 03/21/2024 was 7.6, previous on 11/07/2023 was 9.3% when she was unable to get Mounjaro and prior to that 03/13/2023 of 7.9%. Initially diagnosed with T2DM in 30yrs . Dxed after gestational DM Was initially started on treatment with [metformin]. She has been on Lantus in the past prior to starting Tresiba and was not able to achieve an A1c less than 8%. She has been on multiple GLP 1 agonist for extended time frames including Victoza, Trulicity and Ozempic and did not achieve adequate glycemic control with these agents. She has been on a Dexcom G6 and 7 in the past which greatly aided in controlling her blood sugars. Current regimen Tresiba 72 units units Novolog 4 units bid as needed (was on higher doses in the past a 15-20 units) metformin 1000 mg BID Mounjaro 5 mg Qwkly Unfortunately, the patient does not have sensor data due to insurance change. Previously was on a G7 and had reported low sugars several times per month in the past. She does not check her sugar with a fingerstick. Treats lows with juice Family history of T2DM in mother, grandmother . Has eyes checked yearly, she is overdue and will see if her previous Opth accepts her insurance, has moderate retinopathy. Saw retinal specialist in 03/2023 . Has neuropathy. Does not see podiatry but would like to. Denies nephropathy, onARB.. Has HLD, on statin. Denies CAD. Unable to screen for fatty liver with Fib 4 due to lack of blood work. She reports she has been told in the past she has fatty liver But does not know how this was diagnosed. Had diabetes education in the past. [facility] Medical History (Updated 12/05/22 @ 12:52 by Sammy Bentley MD) Uncontrolled type 2 diabetes mellitus with hyperglycemia Colorectal cancer Neuropathy Hyperlipemia Depressed Diabetes Surgical History History of arthroscopy of right knee Social History Current occupational status: employed Current occupation: rt handed/[employer] Physical Exam Vital Signs: Last Vital Signs Pulse 68 03/21/24 14:22 BP 102/46 L 03/21/24 14:22 BMI result Body Mass Index 39.4 Const Other: Absence of Cushingoid features. Absence of acromegalic features. Neck exam reveals nl size thyroid about 15 gms. No thyroid nodules palpable. No carotid bruits present. Lungs CTA. Heart S1 S2, Reg R/R. No M/R G. Skin exam reveals absence of vitiligo or acanthosis nigricans. Extrem Other: Visual exam of foot performed. No ulcerations or open lesions. + onchomycosis, no callouses, interdigit fissuring or maceration. Sensation diminshed to monofilament exam. Vibratory sensation is normal with 128 Hz tuning fork. Results AMB Hemoglobin A1c AMB Hemoglobin A1c 7.6 % Last Edit by JOSE Do on 03/21/24 14:43 Results Reviewed Results Reviewed: Laboratory Last Values Glucose (Clinic) 210 mg/dL (60-115) H 03/21/24 14:34 Hgb A1c (Clinic) 7.6 % (4.0-6.0) H 03/21/24 14:36 Laboratory Tests 03/13/23 11/07/23 11/14/23 15:10 08:16 07:45 Potassium Creatinine Estimated GFR Hgb A1c (Clinic) 7.9 H 9.3 H Calcium Triglycerides Cholesterol LDL Cholesterol, Calc HDL Cholesterol Urine Creatinine 82.24 Urine Microalbumin 7.0 Microalb/Creat Ratio 8.5 11/14/23 07:46 Potassium 4.9 Creatinine 1.27 Estimated GFR 44 Hgb A1c (Clinic) Calcium 9.9 Triglycerides 160 H Cholesterol 127 LDL Cholesterol, Calc 43 HDL Cholesterol 52 Urine Creatinine Urine Microalbumin Microalb/Creat Ratio Assessment & Plan Assessment & Plan (1) Uncontrolled type 2 diabetes mellitus with hyperglycemia: Code(s): E11.65 - Type 2 diabetes mellitus with hyperglycemia Category: Medical Plan: This 53-year-old type 2 diabetic previously under reasonable control on Tresiba, metformin, NovoLog as needed twice daily in Mounjaro had recent increase in A1c of 9.3% when she was unable to get Mounjaro. She has had multiple failures with longer-term use of Victoza Ozempic and Trulicity. The patient reports she needs a prior authorization for Mounjaro 7.5 mg and this will be requested. I will send for a freestyle Bridgette 3 and she will most likely need a prior authorization for this as well as Tresiba. She has had prior failures to Lantus insulin and needs continuous glucose monitoring to assess for lows into improve her glycemic control. When she was on Mounjaro and G7 sensor in the past she was able to get her A1c down to 7.6%. Her most recent A1c several weeks ago was when she was still on Mounjaro but has since run out. We will order blood work to screen for fatty liver and we will most likely need an ultrasound of the liver with elastography. (2) Steatosis of liver: Code(s): K76.0 - Fatty (change of) liver, not elsewhere classified Plan: Per patient prior history of. She is not sure how this was diagnosed. Will obtain blood work for fib 4. Orders: Orders AMB Hemoglobin A1c Today E11.65 - Type 2 diabetes mellitus with hyperglycemia, Z13.9 - Encounter for screening, unspecified Basic Metabolic Panel Today E11.65 - Type 2 diabetes mellitus with hyperglycemia Liver Fibrosis Pnl Today K76.0 - Fatty (change of) liver, not elsewhere classified Complete Blood Count Auto Diff Today E11.65 - Type 2 diabetes mellitus with hyperglycemia Liver Panel Today K76.0 - Fatty (change of) liver, not elsewhere classified Medications: New blood-glucose sensor (FreeStyle Bridgette 3 Sensor device) As directed 2 ea 11RF E11.65 - Type 2 diabetes mellitus with hyperglycemia insulin degludec 72 units (0.36 mL) subcut BEDTIME 12 mL 3RF E11.65 - Type 2 diabetes mellitus with hyperglycemia Refilled tirzepatide (Mounjaro) 7.5 mg (0.5 mL) subcut QWEEK 2 mL 5RF Discontinued blood-glucose sensor (Dexcom G7 Sensor device) Discontinued Reason: No Longer Medically Relevant As directed change every 10 days 3 ea 5RF Patient Instructions: The patient was counseled to always carry a source of sugar and on the rule of 15's: Take 3 glucose tablets and repeat again in 15 minutes if blood sugar is not in normal range. Continue to repeat every 15 minutes until blood sugar is normal. The patient was counseled to achieve a target A1C of 7% (154 avg). Fasting blood sugars should be 90-130 in the morning and less than 180 two hours after meals. Reviewed the relationship between poor diabetic control and the developement of complications Coding Level of Care Code Est Pt Level 5 (33022) Complex EM visit Add On G2211 Diagnoses Uncontrolled type 2 diabetes mellitus with hyperglycemia E11.65 Steatosis of liver K76.0 Time Spent (min) 60 Comment Time spent reviewing labs/provider notes, face to face, chart doc
[2024-03-21 14:38] LABS: Glucose, Whole Blood 210 mg/dL (60-115)
== END 2024-03-21 15:26 | disposition home or self-care (01) ==
PROVIDERS: PCP Nurse Practitioner Family; Visit Provider Nurse Practitioner Adult Health
DX: E11.65 Type 2 diabetes mellitus with hyperglycemia (principal); K76.0 Fatty (change of) liver, not elsewhere classified; Z13.9 Encounter for screening, unspecified
CPT/HCPCS: 99215; 99417

== ENCOUNTER → 2024-03-21 14:15 | Outpatient (BNVA) | payer BC, SELFPAY | PROVIDERS: PCP Nurse Practitioner Family; Visit Provider Nurse Practitioner Adult Health | DX: E11.65 Type 2 diabetes mellitus with hyperglycemia (principal); K76.0 Fatty (change of) liver, not elsewhere classified; Z79.4 Long term (current) use of insulin | CPT/HCPCS: 82947; 83036 ==

== ENCOUNTER 2024-04-28 07:42 | Outpatient (REF) | payer OTHER, SELFPAY ==
[2024-04-28 08:41] LABS: Basophils Percent Auto 0.7 % (0-2); Eosinophils Absolute Auto 0.2 X10*3/uL (0.0-0.4); Eosinophils Percent Auto 3.9 % (0-4); Hematocrit 37.9 % (37.0-47.0); Hemoglobin 12.9 g/dl (12.0-16.0); Imm Gran Abs Auto 0.03 X10*3/uL (0.00-0.03); Imm Gran Pct Auto 0.5 % (0.0-0.4); Lymphocytes Absolute Auto 1.3 X10*3/uL (1.2-4.9); Lymphocytes Percent Auto 23.3 % (20-40); MANUAL DIFF FLAG SCAN; Mean Corpuscular Hemoglobin 29.7 pg (27.0-33.0); Mean Corpuscular Volume 87.3 fL (80.0-98.0); Monocytes Absolute Auto 0.4 X10*3/uL (0.1-1.2); Monocytes Percent Auto 6.8 % (2-11); Neutrophils Absolute Auto 3.6 x10*3/uL (2.0-8.3); Neutrophils Percent Auto 64.8 % (45-73); PLT CLUMP 1; Red Blood Count 4.34 X10*6/uL (4.20-5.50); Red Cell Distribution Width 12.9 % (11.0-16.0); SCAN SMEAR FLAG 1
[2024-04-28 08:43] LABS: White Blood Count 5.6 X10*3/uL (4.8-10.8)
[2024-04-28 09:08] LABS: Mean Platelet Volume 11.7 fL (9.4-12.3); Platelet Count 216 X10*3/uL (160-400)
[2024-04-28 09:09] LABS: SLIDE REVIEW VERIFIED
[2024-04-28 09:13] LABS: Alanine Aminotransferase 25 U/L (0-31); Albumin Level 4.3 g/dL (3.5-5.0); Alkaline Phosphatase 25 U/L (39-117); Anion Gap 15 (12-20); Aspartate Amino Transferase 22 U/L (5-31); Bilirubin Direct 0.1 mg/dL (0.0-0.5); Bilirubin Total 0.4 mg/dL (0.0-1.0); Blood Urea Nitrogen 16 mg/dL (9-16); Calcium 9.3 mg/dL (8.4-10.2); Carbon Dioxide 18 mmol/L (22-29); Chloride 110 mmol/L (96-108); Estimated Glomerular Filt Rate 48; Glucose Random 264 mg/dL (60-115); Potassium 4.7 mmol/L (3.3-5.1); Sodium 138 mmol/L (135-145); Total Protein 7.1 g/dL (6.5-8.0)
[2024-05-06 00:18] LABS: FIB-ALT 17 U/L (6-29); FIB-Alpha-2-Macroglobulin 297 mg/dL (106-279); FIB-Apolipoprotein A1 162 mg/dL (101-198); FIB-GGT 25 U/L (3-70); FIB-Haptoglobin 146 mg/dL (43-212); FIB-Total Bilirubin 0.2 mg/dL (0.2-1.2); Liver Fibrosis Score 0.16; Liver Fibrosis Stage F0; Nec Inflam Act Grade A0; Nec Inflam Act Score 0.05
== END 2024-04-28 07:43 | disposition home or self-care (01) ==
LOC: HO.LAB 07:42
PROVIDERS: PCP Nurse Practitioner Family; Visit Provider Nurse Practitioner Adult Health
DX: E11.65 Type 2 diabetes mellitus with hyperglycemia (principal); K76.0 Fatty (change of) liver, not elsewhere classified
CPT/HCPCS: 36415; 80048; 80076; 81596; 85025

== ENCOUNTER 2024-05-02 07:03 | Outpatient (AMB) | payer OTHER, SELFPAY ==
--- NOTE | 2024-05-02 06:59 | A.OFFVIS_ITS ---
Vital Signs 05/02/24 07:44 BP 120/68 Blood Pressure Location Rt brachial Position Sitting Pulse 80 Pulse Source Palpation Intake Visit Reasons: T2DM/hyperlipidemia/CONFIRMED Intake Note: Patient presents today for DMT follow up visit. Last Diabetic Eye exam: 2022 Last Podiatry Visit: Doesn't have one Random Glucose: 169 mg/dl HgA1c: 7.6% 03/21/24 Senior Management Consultant Required: No Accompanied by: Self / Same As Patient Allergies codeine [CODEINE] Allergy (Mild, Verified 05/02/24 07:36) STOMACH UPSET latex [LATEX] Allergy (Unknown, Verified 05/02/24 07:36) ANAPHYLAXIS Medication List - Last Reconciled 05/02/24 by Anny Meyer NP amlodipine-olmesartan 5-20 mg 1 tab PO DAILY beclomethasone dipropionate 80 mcg/actuation 1 inh PO BID bupropion HCl XL 450 mg PO DAILY cyclobenzaprine 10 mg PO TID PRN escitalopram oxalate mg PO fluticasone propionate 50 mcg/actuation 1 spray intranasal BID FreeStyle Bridgette 3 Plus Sensor (blood-glucose sensor) As directed NS glucagon 3 mg/actuation (Baqsimi) 3 mg intranasal ONCE ibuprofen 800 mg PO Q8H insulin degludec 64 units (0.32 mL) subcut BEDTIME 30 days metformin 1,000 mg PO BID metoclopramide HCl (Reglan) 10 mg orally first day of taking mounjaro; pen needle, diabetic As directed pen needle, diabetic As directed 4 times day tirzepatide (Mounjaro) 7.5 mg (0.5 mL) subcut QWEEK HPI Comments Details: 53 YO F who is seen in f/u for T2DM. She was last seen by Dr. 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 Last A1c on 03/21/2024 was 7.6, previous on 11/07/2023 was 9.3% when she was unable to get Mounjaro and prior to that 03/13/2023 of 7.9%. Initially diagnosed with T2DM at age 20. Dxed with gestational DM at age 18. Was initially started on treatment with metformin. She had been on Lantus in the past prior to starting Tresiba and was not able to achieve an A1c less than 8%. She has been on multiple GLP 1 agonist for extended time frames including Victoza, Trulicity and Ozempic and did not achieve adequate glycemic control with these agents. She has not had an increase in gastroparesis symptoms since starting Mounjaro and takes a reglan tablet the first day she starts it. Her weight is down 2 lb since starting Mounjaro. Since restarting Mounjaro we are getting her sugars back in normal range she feels her thought processes are much clearer. She does struggle with depression and has had suicidal thoughts in the past with a prior suicide attempt. She feels her meds need to be adjusted but denies any current suicidal thoughts. She plans to contact her primary care provider. She has a history of colon cancer 12 years ago and is overdue for a colonoscopy. She has seen Maren Wild MD in the past and has her contact information at [place] and we will call to schedule a colonoscopy. GI can also address issues with gastroparesis and fatty liver if liver fibrosis panel warrants referral. Current regimen: Tresiba 70 units Novolog 4 units bid (has not needed) metformin 1000 mg BID Mounjaro 5 mg Qwkly Freestyle bridgette 3 average 147 Has had several lows in the am Family history of T2DM in mother, grandmother . + retinopathy: Has eyes checked yearly: She sees a retinal specialist and will call to reestablish, last seen 03/2023 + neuropathy. Does not see podiatry but would like referral +numbness, tingling, hammertoes + nephropathy, on ARB Has not seen nephrology 04/28/24 eGFR 48 11/14/23 microalbumin 7.0 She rarely takes ibuprofen. Has HLD, on statin. 11/2023 LDL 43 Denies CAD. She reports she has been told in the past she has fatty liver but does not know how this was diagnosed. Fibrosis panel pending. Had diabetes education in the past. One daughter, 7 grand children [facility] Medical History (Updated 05/02/24 @ 08:07 by Anny Meyer NP) Fatty liver Hammer toes, bilateral Uncontrolled type 2 diabetes mellitus with hyperglycemia Colorectal cancer Neuropathy Hyperlipemia Depressed Diabetes Surgical History History of arthroscopy of right knee Social History Current occupational status: employed Current occupation: rt handed/[employer] Physical Exam Vital Signs: Last Vital Signs Pulse 80 05/02/24 07:44 BP 120/68 05/02/24 07:44 Const Other: Absence of Cushingoid features. Absence of acromegalic features. Neck exam reveals nl size thyroid about 15 gms. No thyroid nodules palpable. Heart S1 S2, Reg R/R. No M/R G. Skin exam reveals absence of vitiligo or acanthosis nigricans. No edema Visual exam of foot performed. No ulcerations or open lesions. No inter digit maceration or fissuring. No onychomycosis, mild callous plantar aspect right foot.Hammer toes. Sensation absent to monofilament exam. Vibratory sensation is diminished with 128 Hz tuning fork. Results Reviewed Results Reviewed: Laboratory Last Values Glucose (Clinic) 169 mg/dL (60-115) H 05/02/24 07:41 Laboratory Tests 11/14/23 11/14/23 04/28/24 07:45 07:46 07:57 Plt Count 216 Potassium 4.7 Creatinine 1.18 Estimated GFR 48 AST 22 ALT 25 Triglycerides 160 H Cholesterol 127 LDL Cholesterol, Calc 43 HDL Cholesterol 52 Urine Creatinine 82.24 Urine Microalbumin 7.0 Microalb/Creat Ratio 8.5 Assessment & Plan Assessment & Plan (1) Uncontrolled type 2 diabetes mellitus with hyperglycemia: Code(s): E11.65 - Type 2 diabetes mellitus with hyperglycemia Category: Medical Plan: type 2 diabetic with complications of nephropathy, neuropathy and retinopathy with improving glycemic control since restarting Mounjaro. Freestyle Bridgette sen sor shows an average of 147 with some lows. She was advised to reduce degludec to 64 units. Results of liver fibrosis panel are pending. She is scheduling an appointment with Dr. Maren Wild at [facility] for colonoscopy as she has a history of colon cancer in his overdue. She takes Reglan once weekly when she takes Mounjaro otherwise her gastroparesis has not increased since restarting GLP 1. Depending on results of liver fibrosis panel may decrease her stop metformin and start on low dose pioglitazone. (2) Chronic kidney disease (CKD) stage G3a/A1, moderately decreased glomerular filtration rate (GFR) between 45-59 mL/min/1.73 square meter and albuminuria creatinine ratio less than 30 mg/g: Code(s): N18.31 - Chronic kidney disease, stage 3a Category: Medical Plan: She has stage 3A/A1 kidney disease and is referred to Nephrology at [facility]. She rarely takes ibuprofen. Glucose is well controlled but can consider stopping metformin and starting her on Jardiance. She rarely takes ibuprofen but was advised to stop (3) Hammer toes, bilateral: Code(s): M20.41 - Other hammer toe(s) (acquired), right foot; M20.42 - Other hammer toe(s) (acquired), left foot Category: Medical Plan: Neuropathy with hammertoe. She requested referral to Podiatry. (4) Depressed: Code(s): F32.9 - Major depressive disorder, single episode, unspecified Category: Medical Plan: She has a history of depression and prior suicide attempt. She believes she needs an adjustment in medication but denies current suicidal thoughts or plan. She has a supportive relationship with her and she will reach out to him and hotline if she should develop suicidal thoughts. She will contact her PCP today and I have left a message at Jade [place] NP's office at [facility]. She was given suicide hotline prevention line which she will add to her phone. Medications: Changed From insulin degludec Pharmacy: [facility] has approved this medication through prior auth process 72 units (0.36 mL) subcut BEDTIME 30 days 10.8 mL 3RF E11.65 - Type 2 diabetes mellitus with hyperglycemia To insulin degludec Pharmacy: [facility] has approved this medication through prior auth process 64 units (0.32 mL) subcut BEDTIME 30 days 12 mL 3RF E11.65 - Type 2 diabetes mellitus with hyperglycemia Coding Level of Care Code Est Pt Level 5 (34705) Complex EM visit Add On G2211 Diagnoses Uncontrolled type 2 diabetes mellitus with hyperglycemia E11.65 Chronic kidney disease (CKD) stage G3a/A1, moderately decreased glomerular filtration rate (GFR) between 45-59 mL/min/1.73 square meter and albuminuria creatinine ratio less than 30 mg/g N18.31 Hammer toes, bilateral M20.41; M20.42 Depressed F32.9 Time Spent (min) 65 Comment Time spent reviewing labs/provider notes, face to face, chart doc
[2024-05-02 07:44] VITALS: BP 120/68; PULSE 80
[2024-05-02 07:48] LABS: Glucose, Whole Blood 169 mg/dL (60-115)
== END 2024-05-02 07:45 | disposition home or self-care (01) ==
PROVIDERS: PCP Nurse Practitioner Family; Visit Provider Nurse Practitioner Adult Health
DX: E11.22 Type 2 diabetes mellitus with diabetic chronic kidney disease (principal); N18.31 Chronic kidney disease, stage 3a; E11.65 Type 2 diabetes mellitus with hyperglycemia; M20.41 Other hammer toe(s) (acquired), right foot; M20.42 Other hammer toe(s) (acquired), left foot
CPT/HCPCS: 99215

== ENCOUNTER → 2024-05-02 07:03 | Outpatient (BNVA) | payer OTHER, SELFPAY | PROVIDERS: PCP Nurse Practitioner Family; Visit Provider Nurse Practitioner Adult Health | DX: E11.65 Type 2 diabetes mellitus with hyperglycemia (principal); E11.22 Type 2 diabetes mellitus with diabetic chronic kidney disease; N18.31 Chronic kidney disease, stage 3a; E11.40 Type 2 diabetes mellitus with diabetic neuropathy, unspecified; E11.319 Type 2 diabetes mellitus with unspecified diabetic retinopathy without macular edema; M20.41 Other hammer toe(s) (acquired), right foot; M20.42 Other hammer toe(s) (acquired), left foot; F32.9 Major depressive disorder, single episode, unspecified; Z79.4 Long term (current) use of insulin | CPT/HCPCS: 82947 ==

== ENCOUNTER 2024-05-15 09:55 | Outpatient (REF) | payer OTHER, SELFPAY ==
--- NOTE | ~2024-05-15 | US_ITS ---
EXAMINATION: US ABDOMEN LIMITED WITH LIVER ELASTOGRAPHY CLINICAL INFORMATION: Hepatic steatosis. COMPARISON: None available. TECHNIQUE: Real-time imaging of the abdominal viscera. Noninvasive ultrasound liver fibrosis assessment is performed using Jaz ElastPQ point quantification shear wave elastography (pSWE) with a 5 MHz transducer. Multiple elastography samples are obtained. FINDINGS: PANCREAS: . The visualized pancreatic head and body are normal in appearance. The remainder of the pancreas is obscured from visualization by the overlying bowel gas. LIVER: The liver is enlarged with increased echogenicity consistent with hepatic steatosis. Areas of focal fatty sparing are seen adjacent to the gallbladder. No focal lesion or intrahepatic biliary duct dilatation. The right lobe measures 21.5 cm in length. The left lobe measures 12.6 cm in length. Shear wave elastography provides a median stiffness of 1.6 m/s (reference: normal median stiffness is 0.81 - 1.22 m/s). The IQR/median stiffness to assess sampling precision is 0.8 (reference: optimal IQR/median stiffness is under 0.3). GALLBLADDER: Normal. The gallbladder is physiologically distended without evidence of stones, sludge, polyps, wall thickening or pericholecystic fluid. COMMON BILE DUCT: Normal in caliber measuring 0.6 cm in diameter. RIGHT KIDNEY: Normal. No hydronephrosis. No renal calculi or focal parenchymal lesions. The kidney measures 10.7 cm in maximum dimension. FREE FLUID: None. US/US abdomen vazquez w elastography IMPRESSION : 1. Enlarged fatty liver. 2. Elastography: Liver elastography measurements are within normal (METAVIR Stage F0). Electronically signed by: Blue Small MD 07/11/2024 01:40 PM BARB
== END 2024-05-15 09:56 | disposition home or self-care (01) ==
LOC: HO.US 09:55
PROVIDERS: PCP Nurse Practitioner Family; Visit Provider Nurse Practitioner Adult Health
DX: K76.0 Fatty (change of) liver, not elsewhere classified (principal)
CPT/HCPCS: 76705; 76981

== ENCOUNTER 2024-08-19 08:24 | Outpatient (AMB) | payer OTHER, SELFPAY ==
--- NOTE | 2024-08-19 08:26 | A.OFFVIS_ITS ---
Vital Signs 08/19/24 08:29 Height 5 ft 4 in Weight 211 lb 10.3 oz BMI 36.3 BP 112/76 Blood Pressure Location Rt brachial Position Sitting Pulse 75 Pulse Source Pulse Oximeter Intake Visit Reasons: T2DM/hyperlipidemia/Confirmed Intake Note: Patient presents today for a follow-up on Type 2 Diabetes Mellitus: Last Diabetic eye exam was on: DUE Last Podiatry exam was on: Patient does not see a [employer] Most recent HbA1c: 12.6%, 08/19/2024 Random Glucose- 427 mg/dL, Today UR Ketone Dip Negative Casting Molder Required: No Accompanied by: Self / Same As Patient Allergies codeine [CODEINE] Allergy (Mild, Verified 08/19/24 08:30) STOMACH UPSET latex [LATEX] Allergy (Unknown, Verified 08/19/24 08:30) ANAPHYLAXIS HPI Comments Details: 53 YO F who is seen in f/u for T2DM. She was last seen by myself 05/02/24 and had recently restarted Mounjaro 7.5mg weekly, started on a Freestyle Bridgette 3 and liver fibrosis panel was ordered due to diagnosis of MASH. A1C 12.9% 08/19/24. 03/21/2024 was 7.6, previous on 11/07/2023 was 9.3% when she was unable to get Mounjaro and prior to that 03/13/2023 of 7.9%. Initially diagnosed with T2DM at age 20. Dxed with gestational DM at age 18. She changed insurance and was unable to get her medication. She tried to stretch our Tresiba. She is able to get meds filled today. Insurance is not covring Tresiba and would like change to Toujeo. She had difficulty tolerating mounjaro at 50mg and would like to try lower dose. Was initially started on treatment with metformin. She had been on Lantus in the past prior to starting Tresiba and was not able to achieve an A1c less than 8%. She has been on multiple GLP 1 agonist for extended time frames including Victoza, Trulicity and Ozempic and did not achieve adequate glycemic control with these agents. She does struggle with depression and has had suicidal thoughts in the past with a prior suicide attempt. She feels her meds need to be adjusted but denies any current suicidal thoughts. She has seen her PCP who consulted with a psychiatrist and she is being changed to effexor and PCP is working on getting her a therapist/counselor to see. She has a history of colon cancer 12 years ago and is overdue for a colonoscopy. She has seen Maren Wild MD in the past and has her contact information at [place] and we will call to schedule a colonoscopy. GI can also address issues with gastroparesis and fatty liver. There was no fibrosis. She will determine if her prior GI can see her with insurance change and have both fatty liver addressed and have colonscopy, Current regimen: Tresiba 70 units hasn't been taking Novolog 4 units bid (hasn't not needed) metformin 1000 mg BID Mounjaro 5 mg Qwkly Family history of T2DM in mother, grandmother . + retinopathy: Has eyes checked yearly: She sees a retinal specialist and will call to reestablish, last seen 03/2023 She will schedulenits + neuropathy. Does not see podiatry but would like referral +numbness, tingling, hammertoes + nephropathy, on ARB Has not seen nephrology 04/28/24 eGFR 48 11/14/23 microalbumin 7.0 She rarely takes ibuprofen. Has HLD, on statin. 11/2023 LDL 43 Denies CAD. Had diabetes education in the past. One daughter, 7 grand children [facility] Medical History (Updated 05/02/24 @ 08:32 by Anny Meyer NP) Fatty liver Hammer toes, bilateral Uncontrolled type 2 diabetes mellitus with hyperglycemia Colorectal cancer Neuropathy Hyperlipemia Depressed Diabetes Surgical History History of arthroscopy of right knee Social History Current occupational status: employed Current occupation: rt handed/[employer] Physical Exam Vital Signs: Last Vital Signs Pulse 75 08/19/24 08:29 BP 112/76 08/19/24 08:29 BMI result Body Mass Index 36.3 Const Other: Absence of Cushingoid features. Absence of acromegalic features. Neck exam reveals nl size thyroid about 15 gms. No thyroid nodules palpable. Heart S1 S2, Reg R/R. No M/R G. Skin exam reveals absence of vitiligo or acanthosis nigricans. Visual exam of foot performed. No ulcerations or open lesions. No inter digit maceration or fissuring. No onychomycosis, no callouses. Sensation intact to monofilament exam. Vibratory sensation is normal with 128 Hz tuning fork. Pulses positive good cap refill Results AMB Hemoglobin A1c AMB Hemoglobin A1c 12.6 % Last Edit by JOSE Rollins on 08/19/24 08:4 6 UR Ketone Dip UR Ketone Dip Negative Last Edit by JOSE Rollins on 08/19/24 08:59 Results Reviewed Results Reviewed: Laboratory Last Values Glucose (Clinic) 427 mg/dL (60-115) H* 08/19/24 08:36 Hgb A1c (Clinic) 12.6 % (4.0-6.0) H 08/19/24 08:44 Ur Ketones (Stick) Negative 08/19/24 08:57 Assessment & Plan Assessment & Plan (1) Uncontrolled type 2 diabetes mellitus with hyperglycemia: Code(s): E11.65 - Type 2 diabetes mellitus with hyperglycemia Category: Medical Plan: see below Plan type 2 diabetic with complications of nephropathy, neuropathy and retinopathy with poorly controlled DM. She was without insurance for 3 months and was on most of her medications. Switch to G7 she has used in the past due to insurance change she was given a sample for 20 days in the office New dosing Toujeo U 300 start at 60 units increase by 2 units every 3 days until a.m. sugars less than 130 NovoLog 10-14 units before breakfast and supper Metformin a 1000 b.i.d. We will retrial Mounjaro at 2.5 mg to see if she can tolerate this Start pioglitazone 15 mg counseled re:weight gain, edema and heart failure. Most cases 15 mg dosing as well tolerated Orders: Orders Basic Metabolic Panel Today E11.65 - Type 2 diabetes mellitus with hyperglycemia Lipid Panel Today E11.65 - Type 2 diabetes mellitus with hyperglycemia Microalbumin, Random (w Creat) Today E11.65 - Type 2 diabetes mellitus with hyperglycemia AMB Hemoglobin A1c Today E11.65 - Type 2 diabetes mellitus with hyperglycemia AMB Ketone Urine Dipstick Today E11.65 - Type 2 diabetes mellitus with hyperglycemia Creatinine Urine Today E11.65 - Type 2 diabetes mellitus with hyperglycemia Thyroid Stimulating Hormone Today E11.65 - Type 2 diabetes mellitus with hyperglycemia Medications: New blood-glucose sensor ([employer] G7 Sensor device) every ten days continous 3 ea 11RF insulin glargine U-300 conc (Toujeo Max U-300 SoloStar) 60 units daily may increase by 2 units every 3 days until am glucose less than 130 subcutaneously daily; 30 days 12 mL 11RF MDD 80 units lancets (FreeStyle Lancets) tid 100 ea 1RF tirzepatide (Mounjaro) for 4 weeks 2.5 mg (0.5 mL) subcut QWEEK 30 days 2.5 mL 6RF pen needle, diabetic (BD Sobia 2nd Gen Pen Needle) tid 100 ea 6RF E11.65 - Type 2 diabetes mellitus with hyperglycemia insulin aspart U-100 (Novolog FlexPen U-100 Insulin aspart) 10-14 units subcutaneously 2 times a day; 30 days 9 mL 11RF pioglitazone (Actos) 15 mg PO DAILY 30 days 30 tabs 11RF blood sugar diagnostic (FreeStyle Lite Strips) tid 100 ea 6RF E11.65 - Type 2 diabetes mellitus with hyperglycemia blood-glucose meter (FreeStyle Lite Meter kit) As directed tid 1 ea 0RF Discontinued FreeStyle Bridgette 3 Plus Sensor (blood-glucose sensor) Discontinued Reason: Doctor's Order As directed 2 ea 11RF NS E11.65 - Type 2 diabetes mellitus with hyperglycemia insulin degludec Pharmacy: [facility] has approved this medication through prior auth process Discontinued Reason: Doctor's Order 64 units (0.32 mL) subcut BEDTIME 30 days 12 mL 3RF E11.65 - Type 2 diabetes mellitus with hyperglycemia tirzepatide (Mounjaro) Discontinued Reason: Doctor's Order 7.5 mg (0.5 mL) subcut QWEEK 2 mL 5RF Patient Instructions: The patient was counseled to achieve a target A1C of 7% (154 avg). Fasting blood sugars should be 90-130 in the morning and less than 180 two hours after meals. Reviewed the relationship between poor diabetic control and the development of complications. The patient was counseled to always carry a source of sugar and on the rule of 15's: Take 3 glucose tablets and repeat again in 15 minutes if blood sugar is not in normal range. Continue to repeat every 15 minutes until blood sugar is normal. Check your feet daily looking for any signs of infection, ulceration and seek medical attention if this occurs. Break in shoes gradually and do not wear open-toed shoes or walk barefooted. Coding Level of Care Code Est Pt Level 4 (38494) Diagnoses Uncontrolled type 2 diabetes mellitus with hyperglycemia E11.65 Time Spent (min) 35 Comment Time spent reviewing labs/provider notes, glucose,sensor reports, face to face, chart doc
[2024-08-19 08:29] VITALS: BP 112/76; PULSE 75; BMI 36.3
[2024-08-19 08:43] LABS: Glucose, Whole Blood 427 mg/dL (60-115)
== END 2024-08-19 09:15 | disposition home or self-care (01) ==
PROVIDERS: PCP Nurse Practitioner Family; Visit Provider Nurse Practitioner Adult Health
DX: E11.65 Type 2 diabetes mellitus with hyperglycemia (principal)
CPT/HCPCS: 99214

== ENCOUNTER → 2024-08-19 08:24 | Outpatient (BNVA) | payer OTHER, SELFPAY | PROVIDERS: PCP Nurse Practitioner Family; Visit Provider Nurse Practitioner Adult Health | DX: E11.65 Type 2 diabetes mellitus with hyperglycemia (principal); E11.21 Type 2 diabetes mellitus with diabetic nephropathy; E11.40 Type 2 diabetes mellitus with diabetic neuropathy, unspecified; E11.319 Type 2 diabetes mellitus with unspecified diabetic retinopathy without macular edema; Z79.4 Long term (current) use of insulin | CPT/HCPCS: 81002; 82947; 83036 ==

== ENCOUNTER 2024-12-05 09:09 | Outpatient (AMB) | payer BC, SELFPAY ==
--- NOTE | 2024-12-05 04:01 | A.OFFVIS_ITS ---
Vital Signs 12/05/24 09:30 Height 5 ft 4 in Weight 231 lb 7.766 oz BMI 39.7 BP 122/76 Blood Pressure Location Rt brachial Position Sitting Pulse 85 Pulse Source Pulse Oximeter Pulse Oximetry (%) 98 Oxygen Delivery Method Room Air Intake Visit Reasons: T2DM/hyperlipidemia Intake Note: Patient presents today for a follow-up on Type 2 Diabetes Mellitus and Hyperlipidemia: Last Diabetic eye exam was on: DUE Last Podiatry exam was on: Patient does not see a Marketing Operations Consultant Most recent HbA1c: 8.3%, 12/05/2024 Random Glucose- 209 mg/dL, Today Cash Register Repairer Required: No Accompanied by: Self / Same As Patient Allergies codeine [CODEINE] Allergy (Mild, Verified 08/19/24 08:30) STOMACH UPSET latex [LATEX] Allergy (Unknown, Verified 08/19/24 08:30) ANAPHYLAXIS HPI Comments Details: 54 YO F who is seen in f/u for T2DM. She was last seen by myself 08/19/24 and by CDE last month for general dm education at which time she reported she was having difficulty obtaining Mounjaro due to back order. We are now having difficulty getting PA as [place]. She is now on a Freestyle Chiqui 3. A1C 12/05/24 %, 12.9% 08/19/24. A1C had dropped to 7.6% in March while she was taking Tresiba. That was stopped due to insurance reasons and she is now on Toujeo. Initially diagnosed with T2DM at age 20. Dxed with gestational DM at age 18. Was initially started on treatment with metformin. She had been on Lantus in e past prior to starting Tresiba and was not able to achieve an A1c less than 8%. She has been on multiple GLP 1 agonist for extended time frames including Victoza, Trulicity and Ozempic and did not achieve adequate glycemic control with these agents. She was then started on Mounjaro. She does struggle with depression and has had suicidal thoughts in the past with a prior suicide attempt. She feels her meds need to be adjusted but denies any current suicidal thoughts. She has seen her PCP who consulted with a psychiatrist and she is being changed to effexor and PCP is working on getting her a therapist/counselor to see. She has a history of colon cancer 12 years ago and is overdue for a colonoscopy. She has seen Maren Wild MD in the past and has her contact information at [place] and we will call to schedule a colonoscopy. GI can also address issues with gastroparesis and fatty liver. There was no fibrosis. She will determine if her prior GI can see her with insurance change and have both fatty liver addressed and have colonscopy, Current regimen: Toujeo 80 Novolog 10-25 units bid depending on glucose metformin 1000 mg BID actos 15 mg Mounjaro 2.5 mg Qwkly Hasn't been approved yet issues through BCBS of [facility] (she has of [facility] but should be covered through [place]BS [place] per patient Family history of T2DM in mother, grandmother . + retinopathy: Has eyes checked yearly: She sees a retinal specialist and will call to reestablish, last seen 03/2023 + neuropathy. Does not see podiatry but would like referral +numbness, tingling, hammertoes has not seen podiatry, was given referral in the past + nephropathy, on ARB Has not seen nephrology, was given referral in the past 04/28/24 eGFR 48 11/14/23 microalbumin 7.0 She rarely takes ibuprofen. Has HLD, on statin. 11/2023 LDL 43 Denies CAD. Had diabetes education in the past. One daughter, 7 grand children marginally elevated Enlarged liver on liver elastography without advanced fibrosis liver fibrosis wnl except liver A2 macroglobulin PFSH Medical History (Updated 05/02/24 @ 08:32 by Anny Meyer NP) Fatty liver Hammer toes, bilateral Uncontrolled type 2 diabetes mellitus with hyperglycemia Colorectal cancer Neuropathy Hyperlipemia Depressed Diabetes Surgical History History of arthroscopy of right knee Social History Current occupational status: employed Current occupation: rt handed/[employer] Physical Exam Vital Signs: Last Vital Signs Pulse 85 12/05/24 09:30 BP 122/76 12/05/24 09:30 Pulse Ox 98 12/05/24 09:30 Oxygen Delivery Method Room Air 12/05/24 09:30 BMI result Body Mass Index 39.7 Results AMB Hemoglobin A1c AMB Hemoglobin A1c 8.3 % Last Edit by JOSE Rollins on 12/05/24 09:49 Results Reviewed Results Reviewed: Laboratory Last Values Glucose (Clinic) 209 mg/dL (60-115) H 12/05/24 09:38 Hgb A1c (Clinic) 8.3 % (4.0-6.0) H 12/05/24 09:48 Assessment & Plan Assessment & Plan Orders: Orders AMB Hemoglobin A1c Today E11.65 - Type 2 diabetes mellitus with hyperglycemia Coding
[2024-12-05 09:30] VITALS: BP 122/76; PULSE 85; O2SAT 98; BMI 39.7
[2024-12-05 09:42] LABS: Glucose, Whole Blood 209 mg/dL (60-115)
--- OUTSIDE RECORDS SUMMARY | 2024-12-05 09:46 | XMS_ITS | Patient Health Record ---
Author Organization [facility] Address [address] [place] [address] Care Team Providers Care Auto Body Repairer Fiberglass Name Role Phone Jim LENS GRINDER ROUGH, Jade Primary Care Provider Unavail able Christal Helm Unavailable [phone] Reason For Referral No Information Encounters Encounter Location Date Provider Diagnosis [facility] [address] [place] [address] 08/19/2024 Christal Helm Plan Of Treatment No Information Insurance Providers Payer Name Payer Address Payer Phone Subscriber Number Group Number Insured Name Patient Relationship to Insured Coverage Start Date Coverage End Date [facility] [address] [facility] [address] [phone] [id number] Katya Islas Self - patient is the insured
--- OUTSIDE RECORDS SUMMARY | 2024-12-05 09:46 | XMS_ITS ---
Author Organization [facility] Address [address] [place] [address] Care Team Providers Care Pipeline Superintendent Division Name Role Phone Jim MANUFACTURER, Jade Primary Care Provider Unavail able Christal Helm Unavailable [phone] REASON FOR VISIT no ppwrk Encounters Encounter Location Date Provider Diagnosis [facility] [address] [place] [address] 08/26/2024 Christal Helm Plan Of Treatment No Information Progress Notes * Woody ISLASiDOB: 8 (54 yo F)Acc No.[id number]:08/26/2024 Progress Notes Patient:?Katya ISLAS Provider:?Christal Helm DPM :1970???Age:54 Y???Sex:Female D ate:08/26/2024 Address:[address] [place], [place] [id number] Pcp:Jade Fernandez NP Subjective: * Chief Complaints: * ???1. No ppwrk. * Medical History:? Objective: * Vitals:? Assessment: Plan: * Treatment: * Images: * The named appointment provid er may or may not be the originator of this progress note, and it is not deemed complete until electronically signed by the appointment provider. Sign off status: Pending * Provider:?Christal Helm DPM Date:? Generated for Irene ann/Libertad/eTransmitting on:?12/05/2024 09:45 AM EDT
--- OUTSIDE RECORDS SUMMARY | 2024-12-05 09:46 | XMS_ITS ---
Author Organization [facility] Address [address] [place] [id number] Care Team Providers Care School Bus Driver/Mechanic Name Role Phone Jim PLANT UTILITY PERSON, Jade Primary Care Provider Unavail able Christal Helm Unavailable [phone] REASON FOR VISIT cx PLANT UTILITY PERSON 08/26 Encounters Encounter Location Date Provider Diagnosis [facility] [address] [place] [address] 08/19/2024 Christal Helm Plan Of Treatment No Information Progress Notes * Woody MORENOiDOB: [birth year] (54 yo F)Acc No.[id number]:08/19/2024 Patient:?Katya MORENO :1970???Age:54 Y???Sex:Female Address:[address] [place] [address] * true * Date:? Generated for Janiei ng/Famorenog/eTransmitting on:?12/05/2024 09:45 AM EDT
== END 2024-12-05 10:01 | disposition home or self-care (01) ==
LOC: HO.ENCR 09:10
PROVIDERS: PCP Nurse Practitioner Family; Visit Provider Nurse Practitioner Adult Health
DX: E11.65 Type 2 diabetes mellitus with hyperglycemia (principal)

== ENCOUNTER → 2024-12-05 09:09 | Outpatient (BNVA) | payer BC, SELFPAY | PROVIDERS: PCP Nurse Practitioner Family; Visit Provider Nurse Practitioner Adult Health | DX: E11.65 Type 2 diabetes mellitus with hyperglycemia (principal); E78.5 Hyperlipidemia, unspecified | CPT/HCPCS: 82947; 83036 ==

== ENCOUNTER 2025-01-16 08:37 | Outpatient (AMB) | payer BC, SELFPAY ==
--- NOTE | 2025-01-16 07:35 | A.OFFVIS_ITS ---
Vital Signs 01/16/25 08:39 Height 5 ft 4 in Weight 238 lb 1.588 oz BMI 40.9 BP 108/60 Blood Pressure Location Rt brachial Position Sitting Pulse 78 Pulse Source Pulse Oximeter Pulse Oximetry (%) 98 Oxygen Delivery Method Room Air Intake Visit Reasons: Type 2 diabetes mellitus with hyperlipidemia Intake Note: Patient presents today for a follow-up on Type 2 Diabetes Mellitus and Hyperlipidemia: Last Diabetic eye exam was on: DUE Last Podiatry exam was on: Patient does not see a Legal Examiner Most recent HbA1c: 8.3%, 12/05/2024 Random Glucose- 291 mg/dL, Today Certified Nursing Assistant Required: No Accompanied by: Self / Same As Patient Allergies codeine [CODEINE] Allergy (Mild, Verified 01/16/25 08:39) STOMACH UPSET latex [LATEX] Allergy (Unknown, Verified 01/16/25 08:39) ANAPHYLAXIS HPI Comments Details: 54 YO F who is seen in f/u for T2DM. She was last seen in Endocrine clinic 12/05/24. A1C 12/05/24 8.3%, 12.9% 08/19/24. A1C had dropped to 7.6% in March while she was taking Tresiba. This was stopped due to insurance reasons and she is now on Toujeo. At her last visit Mounjaro 2.5 mg was prescribed which she had difficulty obtaining through her insurance. Initially diagnosed with T2DM at age 20. Dxed with gestational DM at age 18. Was initially started on treatment with metformin. She had been on Lantus in the past prior to starting Tresiba and was not able to achieve an A1c less than 8%. She has been on multiple GLP 1 agonist for extended time frames including Victoza, Trulicity and Ozempic and did not achieve adequate glycemic control with these agents. She was then started on Mounjaro. She does struggle with depression and has had suicidal thoughts in the past with a prior suicide attempt. She feels she is doing much better with her depression since starting Effexor. She has a history of colon cancer 12 years ago and is overdue for a colonoscopy. She has seen Maren Wild MD in the past and has her contact information at [place]. At her last visit I again recommended that she follow up with Dr. Prasad but she has been unable to get an appointment there in his requesting a GI referral. Last colonoscopy was approximately 4 years ago. She also has fatty liver. Current regimen: Toujeo 80 Novolog 10-15 bid depending on glucose metformin 1000 mg BID actos 15 mg Mounjaro 2.5 mg Qwkly Hasn't been approved yet issues through BCBS of [facility] (she has of [facility] but should be covered through [place]BS [place] per patient Dexcom average glucose: 266 14 day continuous glucose monitor report reviewed Glucose Managment indicator [ ] % Days with CGM data 69 % TIme in ranges: 58 % very high (above 250) 20 % high ?(181-250) 22 % in range ?(70-180] 0 % low (69-55) 0 % ?very low (below 54) Interpretation consistently above target glucose with increase postprandial numbers Family history of T2DM in mother, grandmother . + retinopathy: Has eyes checked yearly: She sees a retinal specialist and will call to reestablish, last seen 03/2023 She will schedule appt + neuropathy. Does not see podiatry but would like referral +numbness, tingling, hammertoes has not seen podiatry, was given referral in the past Has an appt w [facility] podiatry in 3 months. She had a pedicure and had issue with pedicure at [facility]. + nephropathy, on ARB Has not seen nephrology, was given referral in the past 04/28/24 eGFR 48 11/14/23 microalbumin 7.0 She rarely takes ibuprofen. Has HLD, on statin. 11/2023 LDL 43 Denies CAD. Had diabetes education in the past. One daughter, 7 grand children Working night shifts now and she feels she is overeating. Has not been exercising. Enlarged liver on liver elastography without advanced fibrosis liver fibrosis wnl except liver A2 macroglobulin [facility] Medical History (Updated 01/16/25 @ 08:57 by Anny Meyer NP) Colon cancer Fatty liver Hammer toes, bilateral Uncontrolled type 2 diabetes mellitus with hyperglycemia Colorectal cancer Neuropathy Hyperlipemia Depressed Diabetes Surgical History History of arthroscopy of right knee Social History Current occupational status: employed Current occupation: rt handed/[employer] Physical Exam Const Other: Absence of Cushingoid features. Absence of acromegalic features. Neck exam reveals nl size thyroid about 15 gms. No thyroid nodules palpable. Heart S1 S2, Reg R/R. No M/R G. Skin exam reveals absence of vitiligo or acanthosis nigricans. No edema Visual exam of foot performed. No ulcerations or open lesions. No inter digit maceration or fissuring. No onychomycosis,+callouses BILAT GREAT TOES. right foot 12mm flat blood filled callous, old, no flucuance or s/s infection Sensation intact to monofilament exam. Vibratory sensation is normal with 128 Hz tuning fork. Office Procedures Glucose Monitoring Details Details: see [facility] [id number] - Glucose monitoring, continuous-physician I&R Procedure code (CPT) selection complete Assessment & Plan Assessment & Plan (1) Uncontrolled type 2 diabetes mellitus with hyperglycemia: Code(s): E11.65 - Type 2 diabetes mellitus with hyperglycemia Category: Medical Plan: 54-year-old type 2 diabetic with retinopathy and neuropathy with poorly controlled DM. Most recent A1c 8.3%. She reports if she increases her NovoLog be on 15 units that she tends to have low sugars. She will contact her insurance company directly because [place] [facility] [place] states she is not a member (she has [place] but is supposed to obtain meds through [place]) ONce this is taken care of she will contact me and I can send new PA for both mounjaro and Tresiba. When she was on both of these last year, her A1C was just above 7% and she did not require bolus insulin. For now she will increase Troujeo to 84 units and novolog 15 tid The patient had an opportunity to ask questions regarding treatment plan. The patient expressed understanding and agreement with the above treatment plan. The patient is aware they should contact our office by phone for worsening glucose readings or for any low blood sugars which may warrant a change in diabetes medication. Compliance is encouraged with medications and any followup testing/consults which may have been ordered. She has an appointment with the podiatry. No treatment needed for callus at this time. (2) Colon cancer: Code(s): C18.9 - Malignant neoplasm of colon, unspecified Category: Medical Plan: At her last few visits she was advised to contact her previous GI doctor at [facility]. She has determine that she is not up to seek care at [place] and has requested a GI referral here. She also has fatty liver which was added to a GI referral. Per patient her last colonoscopy was 5 years ago and she has a prior history of colon cancer. Record release form was signed by the patient today for [facility] medical records related to her colon cancer and colonoscopies to be sent directly to Gastroenterology. Orders: Orders AMB Glucose Monitoring Today E11.65 - Type 2 diabetes mellitus with hyperglycemia Referrals Gastroenterology Referral C18.9 - Malignant neoplasm of colon, unspecified Coding Level of Care Code Est Pt Level 4 (21023) Complex EM visit Add On G2211 Diagnoses Uncontrolled type 2 diabetes mellitus with hyperglycemia E11.65 Colon cancer C18.9 CPT Codes Details - CPT: 34017 - Glucose monitoring, continuous-physician I&R ([id number]) Time Spent (min) 30 Comment Time spent reviewing labs/provider notes, face to face, chart doc Hyperlipidemia Most Recent Cardiac Tests: No Data to Display
[2025-01-16 08:39] VITALS: BP 108/60; PULSE 78; O2SAT 98; BMI 40.9
[2025-01-16 08:50] LABS: Glucose, Whole Blood 291 mg/dL (60-115)
--- OUTSIDE RECORDS SUMMARY | 2025-01-16 08:50 | XMS_ITS | Patient Health Record ---
Author Organization [facility] Address [address] [place] [address] Care Team Providers Care Network Engineer Administrator Name Role Phone Jim TEST DESK OPERATOR, Jade Primary Care Provider Unavail able Christal Helm Unavailable [phone] Reason For Referral No Information Encounters Encounter Location Date Provider Diagnosis [facility] [address] [place] [address] 08/19/2024 Christal Helm Plan Of Treatment No Information Insurance Providers Payer Name Payer Address Payer Phone Subscriber Number Group Number Insured Name Patient Relationship to Insured Coverage Start Date Coverage End Date [facility] [address] [facility] [address] [phone] [id number] Katya Islas Self - patient is the insured
== END 2025-01-16 09:16 | disposition home or self-care (01) ==
LOC: HO.ENCR 08:37
PROVIDERS: PCP Nurse Practitioner Family; Visit Provider Nurse Practitioner Adult Health
DX: E11.65 Type 2 diabetes mellitus with hyperglycemia (principal); C18.9 Malignant neoplasm of colon, unspecified
CPT/HCPCS: 95251; 99214

== ENCOUNTER → 2025-01-16 08:37 | Outpatient (BNVA) | payer BC, SELFPAY | PROVIDERS: PCP Nurse Practitioner Family; Visit Provider Nurse Practitioner Adult Health | DX: E11.65 Type 2 diabetes mellitus with hyperglycemia (principal); C18.9 Malignant neoplasm of colon, unspecified | CPT/HCPCS: 82947 ==

== ENCOUNTER 2025-02-04 07:57 | Outpatient (AMB) | payer BC, SELFPAY ==
--- NOTE | 2025-02-04 07:25 | A.OFFVIS_ITS ---
Vital Signs 02/04/25 08:01 Height 5 ft 4 in Weight 239 lb 4.862 oz BMI 41.1 BP 114/68 Blood Pressure Location Rt brachial Position Sitting Pulse 76 Pulse Source Pulse Oximeter Pulse Oximetry (%) 96 Oxygen Delivery Method Room Air Intake Visit Reasons: type 2 dm Intake Note: Patient presents today for a follow-up on Type 2 Diabetes Mellitus and Hyperlipidemia: Last Diabetic eye exam was on: DUE Last Podiatry exam was on: Patient does not see a Retail Aide Most recent HbA1c: 8.3%, 12/05/2024 Random Glucose- 175 mg/dL, Today Hat Band Attacher Required: No Accompanied by: Self / Same As Patient Allergies codeine (CODEINE) Allergy (Mild, Verified 01/16/25 08:39) STOMACH UPSET latex (LATEX) Allergy (Unknown, Verified 01/16/25 08:39) ANAPHYLAXIS Medication List - Last Reconciled 02/04/25 by Anny Meyer NP amlodipine-olmesartan 5-20 mg 1 tab PO DAILY beclomethasone dipropionate 80 mcg/actuation 1 inh PO BID blood sugar diagnostic (FreeStyle Lite Strips) tid blood-glucose meter (FreeStyle Lite Meter kit) As directed tid blood-glucose sensor (Dexcom G7 Sensor device) every ten days continous bupropion HCl XL 450 mg PO DAILY cyclobenzaprine 10 mg PO TID PRN fluticasone propionate 50 mcg/actuation 1 spray intranasal BID glucagon 3 mg/actuation (Baqsimi) 3 mg intranasal ONCE insulin glargine U-300 conc (Toujeo Max U-300 SoloStar) 80 units daily may increase by 2 units every 3 days until am glucose less than 130 subcutaneously daily; insulin lispro (Humalog KwikPen (U-100) Insulin) 10-20 units before breakfast and supper subcutaneously use as directed; insulin lispro (Humalog KwikPen (U-100) Insulin) 26 units (0.26 mL) subcut TID 30 days lancets (FreeStyle Lancets) tid metformin 1,000 mg PO BID metoclopramide HCl (Reglan) 10 mg orally first day of taking mounjaro; pen needle, diabetic As directed pen needle, diabetic As directed 4 times day pen needle, diabetic (BD Sobia 2nd Gen Pen Needle) tid pioglitazone (Actos) 15 mg PO DAILY 30 days tirzepatide (Mounjaro) 2.5 mg (0.5 mL) subcut QWEEK 30 days HPI Comments Details: 54 YO F who is seen in f/u for T2DM. She was last seen in Endocrine clinic 01/16/25. A1C 12/05/24 8.3%, 12.9% 08/19/24. A1C had dropped to 7.6% in March while she was taking Tresiba. This was stopped due to insurance reasons and she is now on Toujeo. At her last visit Mounjaro 2.5 mg was prescribed which she had difficulty obtaining through her insurance. Initially diagnosed with T2DM at age 20. Dxed with gestational DM at age 18. Was initially started on treatment with metformin. She had been on Lantus in the past prior to starting Tresiba and was not able to achieve an A1c less than 8%. She has been on multiple GLP 1 agonist for extended time frames including Victoza, Trulicity and Ozempic and did not achieve adequate glycemic control with these agents. She was then started on Mounjaro and did well. She does struggle with depression and has had suicidal thoughts in the past with a prior suicide attempt. She feels she is doing much better with her depression since starting Effexor. She has a history of colon cancer 12 years ago and is overdue for a colonoscopy. She has seen Maren Wild MD in the past and has her contact information at [place]. At her last visit I again recommended that she follow up with Dr. Prasad but she has been unable to get an appointment there in his requesting a GI referral. Last colonoscopy was approximately 4 years ago. She also has fatty liver. Current regimen: Toujeo 80 Novolog 20 bid tid if she eats a 3rd meal metformin 1000 mg BID actos 15 mg Mounjaro 2.5 mg Qwkly Not yet approved prescription was not approved by her healthcare insurance and an appeal has been submitted based on the fact that she was on other GLP ones in the past without success Dexcom average glucose: 269 14 day continuous glucose monitor report reviewed Glucose Managment indicator 9.8 % Days with CGM data 83 % TIme in ranges: 55 % very high (above 250) 26 % high ?(181-250) 19 % in range ?(70-180] 0 % low (69-55) 0 % ?very low (below 54) 90 Standard Deviation Interpretation consistently above target with postprandial bumps after supper Family history of T2DM in mother, grandmother . + retinopathy: Has eyes checked yearly: She sees a retinal specialist and will call to reestablish, last seen 03/2023 She will schedule appt She sees retinal specialist at [facility] [place] + neuropathy. Does not see podiatry but would like referral +numbness, tingling, velasquez has not seen podiatry, was given referral in the past Has an appt with podiatry in 3 months. She had a pedicure and had issue with pedicure at [facility] She is homing to see Dr. Dutta at [facility] + nephropathy, on ARB Has not seen nephrology, was given referral in the past 04/28/24 eGFR 48 11/14/23 microalbumin 7.0 She rarely takes ibuprofen. Has HLD, on statin. 11/2023 LDL 43 Denies CAD. Had diabetes education in the past. One daughter, 7 grand children Working night shifts now and she feels she is overeating. Has not been exercising. Has h/o colon cancer over due for colonscopy has app[place] [facility] Enlarged liver on liver elastography without advanced fibrosis liver fibrosis wnl except liver A2 macroglobulin [facility] Medical History (Updated 01/16/25 @ 08:57 by Anny Meyer NP) Colon cancer Fatty liver Hammer toes, bilateral Uncontrolled type 2 diabetes mellitus with hyperglycemia Colorectal cancer Neuropathy Hyperlipemia Depressed Diabetes Surgical History History of arthroscopy of right knee Social History Current occupational status: employed Current occupation: rt handed/[employer] Physical Exam Vital Signs: BMI result Body Mass Index 41.2 HEENT Other: Absence of Cushingoid features. Absence of acromegalic features. Neck exam reveals nl size thyroid about 15 gms. No thyroid nodules palpable. Heart S1 S2, Reg R/R. No M/R G. Skin exam reveals absence of vitiligo or acanthosis nigricans. No edema Visual exam of foot performed. No ulcerations or open lesions. No inter digit maceration or fissuring. + onychomycosis, callous: milateral great toe, left foot thin hardened dark callous loose, callous tip second toe left Sensation intact to monofilament exam. Vibratory sensation is normal with 128 Hz tuning fork. Assessment & Plan Assessment & Plan (1) Uncontrolled type 2 diabetes mellitus with hyperglycemia: Code(s): E11.65 - Type 2 diabetes mellitus with hyperglycemia Category: Medical Plan: 54-year-old type 2 diabetic with retinopathy, neuropathy and nephropathy with previously controlled diabetes now in poor control. She has not done well on Trulicity or Ozempic in the past when on Mounjaro she had well-controlled numbers. Her commercial insurance recently denied Mounjaro based on an invalid reasons. The rationale was that she needed approve of type 2 diabetes. Appeal has been submitted and we are waiting approval of this medication. She will increase Toujeo to 94 units. Increase Humalog to 26 units. Start Mounjaro once approved. She may need insulin titration downward once she starts. She was counseled if she needs assistance with this to call our office. For now I am keeping the Toujeo on her med list until the Tresiba gets approved. She did better in the past on Tresiba so we will also fill a prior authorization for this at 94 units. She has an upcoming podiatry appointment and was encouraged again to schedule with her retinal specialist. She has an appointment in GI. She has a history of colon cancer in his overdue for her colonoscopy. She was unable to get in with her previous provider who was outside of [facility] so as decided to transfer her care here. The patient had an opportunity to ask questions regarding treatment plan. The patient expressed understanding and agreement with the above treatment plan. The patient is aware they should contact our office by phone for worsening glucose readings or for any low blood sugars which may warrant a change in diabetes medication. Compliance is encouraged with medications and any followup testing/consults which may have been ordered. Medications: New 2 insulin degludec (Tresiba FlexTouch U-200 insulin) 94 units (0.47 mL) subcut BEDTIME 45 mL 3RF 90 days insulin lispro (Humalog KwikPen (U-100) Insulin) 26 units (0.26 mL) subcut TID 30 days 24 mL 6RF insulin lispro (Humalog KwikPen (U-100) Insulin) 26 units (0.26 mL) subcut TID 72 mL 3RF 90 days Refilled pioglitazone (Actos) 15 mg PO DAILY 30 tabs 11RF 30 days Coding Level of Care Code Est Pt Level 4 (90904) Complex EM visit Add On G2211 Diagnoses Uncontrolled type 2 diabetes mellitus with hyperglycemia E11.65
--- OUTSIDE RECORDS SUMMARY | 2025-02-04 07:59 | XMS_ITS | Patient Health Record ---
Author Organization [facility] Address [address] [place] [address] Care Team Providers Care Guide Visitor Name Role Phone Jim [employer] AD[employer], Jade Primary Care Provider Unavail able Christal Helm Unavailable [phone] Reason For Referral No Information Encounters Encounter Location Date Provider Diagnosis [facility] [address] [place] [address] 08/19/2024 Christal Helm Plan Of Treatment No Information Insurance Providers Payer Name Payer Address Payer Phone Subscriber Number Group Number Insured Name Patient Relationship to Insured Coverage Start Date Coverage End Date [facility] [address] [facility] [address] [phone] [id number] Katya Islas Self - patient is the insured
[2025-02-04 08:01] VITALS: BP 114/68; PULSE 76; O2SAT 96; BMI 41.1
[2025-02-04 08:12] LABS: Glucose, Whole Blood 175 mg/dL (60-115)
== END 2025-02-04 08:29 | disposition home or self-care (01) ==
LOC: HO.ENCR 07:58
PROVIDERS: PCP Nurse Practitioner Family; Visit Provider Nurse Practitioner Adult Health
DX: E11.65 Type 2 diabetes mellitus with hyperglycemia (principal)
CPT/HCPCS: 99214

== ENCOUNTER → 2025-02-04 07:57 | Outpatient (BNVA) | payer BC, SELFPAY | PROVIDERS: PCP Nurse Practitioner Family; Visit Provider Nurse Practitioner Adult Health | DX: E11.65 Type 2 diabetes mellitus with hyperglycemia (principal) | CPT/HCPCS: 82947 ==

== ENCOUNTER 2025-03-20 08:48 | Outpatient (AMB) | payer BC, SELFPAY ==
[2025-03-20 08:50] VITALS: BP 122/72; PULSE 78; O2SAT 98; BMI 41.4
--- NOTE | 2025-03-20 08:50 | A.OFFVIS_ITS ---
Vital Signs 3 03/20/25 08:50 Height 5 ft 4 in Weight 241 lb 2.971 oz BMI 41.4 BP 122/72 Blood Pressure Location Lt brachial Position Sitting Pulse 78 Pulse Source Pulse Oximeter Pulse Oximetry (%) 98 Oxygen Delivery Method Room Air Intake Visit Reasons: T2DM Intake Note: Patient present today for Type 2 Diabetes Mellitus Last Diabetic eye exam: 03/2025 Last Podiatry Visit: 03/2025 Random Glucose: 139 mg/dl HgA1C: 7.9% Safety Inspector Required: No Accompanied by: Self / Same As Patient Allergies codeine (CODEINE) Allergy (Mild, Verified 03/20/25 08:55) STOMACH UPSET latex (LATEX) Allergy (Unknown, Verified 03/20/25 08:55) ANAPHYLAXIS Medication List - Last Reconciled 03/20/25 by Kim Aldridge MD amlodipine-olmesartan 5-20 mg 1 tab PO DAILY beclomethasone dipropionate 80 mcg/actuation 1 inh PO BID blood sugar diagnostic (FreeStyle Lite Strips) tid blood-glucose meter (FreeStyle Lite Meter kit) As directed tid blood-glucose sensor (McKinstry Reklaim G7 Sensor device) every ten days continous bupropion HCl XL 450 mg PO DAILY cyclobenzaprine 10 mg PO TID PRN fluticasone propionate 50 mcg/actuation 1 spray intranasal BID glucagon 3 mg/actuation (Baqsimi) 3 mg intranasal ONCE insulin glargine U-300 conc (Toujeo Max U-300 SoloStar) 80 units subcut DAILY insulin lispro (Humalog KwikPen (U-100) Insulin) 20 units (0.2 mL) subcut TID 90 days lancets (FreeStyle Lancets) tid metformin 1,000 mg PO BID metoclopramide HCl (Reglan) 10 mg orally first day of taking mounjaro; pen needle, diabetic As directed pen needle, diabetic As directed 4 times day pen needle, diabetic (BD Sobia 2nd Gen Pen Needle) tid pioglitazone (Actos) 15 mg PO DAILY 30 days rosuvastatin 20 mg PO DAILY tirzepatide (Mounjaro) 5 mg (0.5 mL) subcut QWEEK HPI Comments Details: 54 YO F who is seen in f/u for T2DM. Last seen 02/04/2025 by Anny Pavon APRN. Initially diagnosed with T2DM at age 20. Dxed with gestational DM at age 18. a1c 7.9 % 03/20/25 A1C 12/05/24 8.3%, 12.9% 08/19/24. A1C had dropped to 7.6% in March 2024 while she was taking Tresiba. This was stopped due to insurance reasons and she is now on Toujeo. Prior therapy Was initially started on treatment with metformin. She had been on Lantus in the past prior to starting Tresiba and was not able to achieve an A1c less than 8%. She has been on multiple GLP 1 agonist for extended time frames including Victoza, Trulicity and Ozempic and did not achieve adequate glycemic control with these agents. She was then started on Mounjaro (started February 2025) and did well. She does struggle with depression and has had suicidal thoughts in the past with a prior suicide attempt. She feels she is doing much better with her depression since starting Effexor. She has a history of colon cancer 12 years ago and is overdue for a colonoscopy. She has seen Maren Wild MD in the past and has her contact information at [facility]. At her last visit I again recommended that she follow up with Dr. Prasad but she has been unable to get an appointment there and has appt with GI May 2025 here at [facility] Last colonoscopy was approximately 4 years ago. She also has fatty liver. Current regimen: Toujeo 80 units in AM Novolog 20 bid tid if she eats a 3rd meal, these days she is mostly taking it once a day with breakfast if 170 or > 10 units over 200> 15 units or late 200s 20 units with a high carb meal metformin 1000 mg BID actos 15 mg Mounjaro 2.5 mg Qwkly Sunday (started February 2025) Random glucose 139 mg/dl had breakfast sandwich and fruit and iced coffee Dexcom CGM data downloaded March 01 to 03/14/2025 Average glucose 183 mg/dL G WI 7.7% Coefficient of variation 31.6% Time CGM active 96% Within target range 52% High 33% Very high 15% Low 0% Very low less than 1% Interpretation: Does have some nighttime highs plus post breakfast and lunch hyperglycemia. However much improved overall. Family history of T2DM in mother, grandmother . + retinopathy: Has eyes checked yearly: She sees a retinal specialist 03/30 [facility] + neuropathy. Does not see podiatry 03/30 +numbness, tingling, hammertoes + nephropathy, on ARB Has not seen nephrology, was given referral in the past 04/28/24 eGFR 48 11/14/23 microalbumin 7.0 She rarely takes ibuprofen. Has HLD, on rosuvastatin 20 mg . 11/2023 LDL 43 Denies CAD. Had diabetes education in the past. One daughter, 7 grand children Working night shifts now and she feels she is overeating. Has not been exercising. Has h/o colon cancer over due for colonscopy [place] app[place] [facility]larged liver on liver elastography without advanced fibrosis liver fibrosis wnl except liver A2 macroglobulin Physical exam General: sitting comfortably in no acute distress HEENT: normocephalic/atraumatic, , moist oral mucosa Neck: supple, Cardiac: normal heart sounds Pulm: normal breath sounds B/L, no added breath sounds Abd: not distended, no tenderness Extremities: no edema, no signs of myxedema Neuro: AAO x3, Speech: normal, no facial droop, moving all 4 extremities Laboratory Tests 11/14/23 11/14/23 04/28/24 07:45 07:46 07:57 Hgb 12.9 Hct 37.9 Plt Count 216 Glucose (Clinic) Hgb A1c (Clinic) AST 22 ALT 25 Triglycerides 160 H Cholesterol 127 LDL Cholesterol, Calc 43 HDL Cholesterol 52 Urine Creatinine 82.24 Urine Microalbumin 7.0 Microalb/Creat Ratio 8.5 08/19/24 12/05/24 02/04/25 08:44 09:48 08:08 Hgb Hct Plt Count Glucose (Clinic) 175 H Hgb A1c (Clinic) 12.6 H 8.3 H AST ALT Triglycerides Cholesterol LDL Cholesterol, Calc HDL Cholesterol Urine Creatinine Urine Microalbumin Microalb/Creat Ratio 03/20/25 08:58 Hgb Hct Plt Count Glucose (Clinic) 139 H Hgb A1c (Clinic) AST ALT Triglycerides Cholesterol LDL Cholesterol, Calc HDL Cholesterol Urine Creatinine Urine Microalbumin Microalb/Creat Ratio [facility] Medical History (Updated 01/16/25 @ 08:57 by Anny J Mitch, PULMONARY FELLOW) Colon cancer Fatty liver Hammer toes, bilateral Uncontrolled type 2 diabetes mellitus with hyperglycemia Colorectal cancer Neuropathy Hyperlipemia Depressed Diabetes Surgical History History of arthroscopy of right knee Social History Current occupational status: employed Current occupation: rt handed/[employer] Physical Exam Vital Signs: Last Vital Signs Pulse 78 03/20/25 08:50 BP 122/72 03/20/25 08:50 Pulse Ox 98 03/20/25 08:50 Oxygen Delivery Method Room Air 03/20/25 08:50 BMI result Body Mass Index 41.4 Office Procedures Glucose Monitoring Details Details: See [facility] [address] - Glucose monitoring, continuous-physician I&R Procedure code (CPT) selection complete Results AMB Hemoglobin A1c 2 AMB Hemoglobin A1c 7.9 % Last Edit by JOSE Do on 03/20/25 09:08 Assessment & Plan Assessment & Plan (1) Uncontrolled type 2 diabetes mellitus with hyperglycemia: Code(s): E11.65 - Type 2 diabetes mellitus with hyperglycemia Category: Medical Plan: 54-year-old female with type 2 diabetes mellitus with complications of retinopathy, neuropathy, CKD, with long-term insulin use coming in today for follow up. A1c improved 03/20/2025 to 7.9% from 8.3% in 12/05/2024. Reviewed Dexcom data for the past 2 weeks which still shows she continues to have postprandial hyperglycemia. We will go up on the dose of Mounjaro. Plan: -Increase Mounjaro to 5 mg weekly -Continue Toujeo 80 units daily -Continue metformin 1000 mg twice daily -Continue actos 15 mg daily -change Novolog with biggest meal of the day to as below <150: 0 units 150 - 200: 10 units 201 to 250 : 15 units >250 : 20 units -due for repeat labs, ordered -follow up in 5-6 weeks Plan I spent 30 minutes in reviewing the record, seeing the patient and documenting in the medical record. Orders: Orders 2 Microalbumin, Random (w Creat) Today E11.65 - Type 2 diabetes mellitus with hyperglycemia Vitamin B12 Today E11.65 - Type 2 diabetes mellitus with hyperglycemia Alanine Aminotransferase Today E11.65 - Type 2 diabetes mellitus with hyperglycemia AMB Hemoglobin A1c Today E11.65 - Type 2 diabetes mellitus with hyperglycemia, Z13.9 - Encounter for screening, unspecified Lipid Panel Today E11.65 - Type 2 diabetes mellitus with hyperglycemia Complete Blood Count no Diff Today E11.65 - Type 2 diabetes mellitus with hyperglycemia Creatinine Today E11.65 - Type 2 diabetes mellitus with hyperglycemia Aspartate Amino Transferase Today E11.65 - Type 2 diabetes mellitus with hyperglycemia AMB Glucose Monitoring Today E11.65 - Type 2 diabetes mellitus with hyperglycemia Medications: New 2 tirzepatide (Mounjaro) 5 mg (0.5 mL) subcut QWEEK 2 mL 6RF E11.65 - Type 2 diabetes mellitus with hyperglycemia insulin glargine U-300 conc (Toujeo Max U-300 SoloStar) 80 units (0.2667 mL) subcut DAILY 12 mL 4RF Changed 2 From insulin lispro (Humalog KwikPen (U-100) Insulin) 26 units (0.26 mL) subcut TID 90 days 72 mL 3RF To insulin lispro (Humalog KwikPen (U-100) Insulin) 20 units (0.2 mL) subcut TID 54 mL 3RF 90 days Discontinued 2 tirzepatide (Mounjaro) for 4 weeks Discontinued Reason: Doctor's Order 2.5 mg (0.5 mL) subcut QWEEK 30 days 2.5 mL 6RF Patient Instructions: Increase Mounjaro to 5 mg weekly Continue Toujeo 80 units daily Continue metformin 1000 mg twice daily Continue actos 15 mg daily change Novolog with biggest meal of the day to as below <150: 0 units 150 - 200: 10 units 201 to 250 : 15 units >250 : 20 units do labs both urine and blood Bring med list /bottles next visit Coding Level of Care Code Est Pt Level 4 (21441) Diagnoses Uncontrolled type 2 diabetes mellitus with hyperglycemia E11 CPT Codes Details - CPT: 85093 - Glucose monitoring, continuous-physician I&R ([id number]) Time Spent (min) 30
[2025-03-20 09:02] LABS: Glucose, Whole Blood 139 mg/dL (60-115)
--- OUTSIDE RECORDS SUMMARY | 2025-03-20 09:05 | XMS_ITS | Patient Health Record ---
Author Organization [facility] Address [address] [place] [address] Care Team Providers Care Photographic Aide Name Role Phone Jim RESEARCH PHYSICIAN, Jade Primary Care Provider Unavail able Christal Helm Unavailable [phone] Reason For Referral No Information Encounters Encounter Location Date Provider Diagnosis [facility] [address] [place] [address] 08/19/2024 Christal Helm Plan Of Treatment No Information Insurance Providers Payer Name Payer Address Payer Phone Subscriber Number Group Number Insured Name Patient Relationship to Insured Coverage Start Date Coverage End Date [facility] [address] [facility] [address] [phone] [id number] Katya Islas Self - patient is the insured
--- OUTSIDE RECORDS SUMMARY | 2025-03-20 09:05 | XMS_ITS | Clinical Summary ---
Author Organization [address] [place] [address] Address [address] [place] [address] Phone Care Team Providers Care Web Site Administrator Name Role Phone Jade Fernandez GENERATION ENGINEER Primary Care Provider Allergies Active Allergy Reactions Criticality Noted Date Comments El Inhibitors Cough 02/24/2025 Codeine 02/24/2025 Latex 02/24/2025 Oxycodone-Acetaminophen 02/24/2025 Encounters Date Type Department Care Team Description 02/24/2025 10:15 AM EDT Office Visit Orthopedic Surgery [facility] [address] [id number] Mike Dutta DPM Controlled type 2 diabetes with neuropathy (CMS/HCC V24, CMS/HCC V28) (Primary Dx); Pain in toes of both feet; Hammertoes of both feet; Dermatophytosis, nail from Last 3 Months Social History Tobacco Use Types Packs/Day Years Used Date Smoking Tobacco: Never Assessed Comments Unknown Sex and Gender Information Value Date Recorded Sex Assigned at Not on file Legal Sex Female 9:18 AM EDT Gender Identity Not on file Sexual Orientation Not on file Plan of Treatment Upcoming Encounters Date Type Department Care Team (Late st Contact Info) Description 08/27/2025 10:30 AM EST Office Visit Orthopedic [facility] [address] [phone] Mike Dutta DPM [address] [id number] Health Maintenance Due Date Last Done Comments Breast Cancer Screening 1968 Diabetes: Annual GFR (Glomerular Filtration Rate) 1968 Diabetes: Annual Foot Exam 1978 Diabetes: Annual Retina Eye Exam 1978 Hepatitis B Vaccines (1 of 3 - 19+ 3-dose series) 1987 Cervical Cancer Screening: Pap Smear 1989 Zoster Vaccines (1 of 2) 2018 COVID-19 Vaccine ( season) 2024 04/04/2024, 05/17/2023, 06/12/2021, Additional history exists Depression Screening 08/06/2024 DTaP,Tdap,and Td Vaccines (3 - Td or Tdap) 02/02/2025 02/02/2015, 12/16/2009 Cholesterol Screening (Lipid Panel) 02/12/2025 Colorectal Cancer Screening: Colonoscopy 02/12/2025 Diabetes: Annual Urine Albumin-Creatinine Ratio (uACR) 02/12/2025 Diabetes: Blood Sugar Control Test (HGBA1C) 02/12/2025 HIV Screening 02/12/2025 Hepatitis C Screening 02/12/2025 Social Influencers of Health Screening 02/12/2025 Hypertension/CHF/CAD Annual BMP Blood Test 02/24/2025 Influenza Vaccine (#1) 2025 , 05/02/2022, 06/04/2021, Additional history exists Pneumococcal Vaccine: 50+ Years Completed 07/26/2023, 12/14/2015, 06/06/2007 HIB Vaccines Aged Out No longer eligi ble based on patient's age to complete this topic HPV Vaccines Aged Out No longer eligi ble based on patient's age to complete this topic Hepatitis A Vaccines Aged Out No long er eligible based on patient's age to complete this topic IPV Vaccines Aged Out No longer eligi ble based on patient's age to complete this topic MMR Vaccines Aged Out No longer eligi ble based on patient's age to complete this topic Meningococcal ACWY Vaccine Aged Out N o longer eligible based on patient's age to complete this topic Meningococcal B Vaccine Aged Out No l onger eligible based on patient's age to complete this topic RSV Immunization Patients Under 20 months Aged Out No longer eligible based on patient's age to complete this topic Varicella Vaccines Aged Out No longer eligible based on patient's age to complete this topic Insurance [facility] Care Teams Web Site Administrator Relationship Specialty Start Date End Date Jade Fernandez NP [address] [facility] [place] [address] PCP - General Nurse Practitioner 02/12/25
== END 2025-03-20 09:33 | disposition home or self-care (01) ==
LOC: HO.ENCR 08:48
PROVIDERS: PCP Nurse Practitioner Family; Visit Provider Student in an Organized Health Care Education/Training Program
DX: Z13.9 Encounter for screening, unspecified (principal); E11.65 Type 2 diabetes mellitus with hyperglycemia
CPT/HCPCS: 95251; 99214

== ENCOUNTER → 2025-03-20 08:48 | Outpatient (BNVA) | payer BC, SELFPAY | PROVIDERS: PCP Nurse Practitioner Family; Visit Provider Student in an Organized Health Care Education/Training Program | DX: E11.65 Type 2 diabetes mellitus with hyperglycemia (principal) | CPT/HCPCS: 82947; 83036 ==

== ENCOUNTER 2025-05-06 12:21 | Outpatient (REF) | payer BC, SELFPAY ==
[2025-05-06 14:10] LABS: Hematocrit 39.2 % (37.0-47.0); Hemoglobin 12.6 g/dl (12.0-16.0); Mean Corpuscular HGB Conc 32.1 g/dl (31.0-35.0); Mean Corpuscular Hemoglobin 28.6 pg (27.0-33.0); Mean Corpuscular Volume 88.9 fL (80.0-98.0); NRBC Abs Auto 0.000 X10*3/uL (0.0-0.012); NRBC Pct Auto 0.0 /100WBC (0.0-0.2); Platelet Count 282 X10*3/uL (160-400); Red Blood Count 4.41 X10*6/uL (4.20-5.50); White Blood Count 8.0 X10*3/uL (4.8-10.8)
[2025-05-06 14:41] LABS: Iron 58 mcg/dL (30-160); Percent Iron Saturation 20 % (15-50); Total Iron Binding Capacity 291 mcg/dL (228-428); Unsaturated Iron Binding 233 ug/dL
[2025-05-06 15:03] LABS: Ferritin 46 ng/mL (10-250)
== END 2025-05-06 12:22 | disposition home or self-care (01) ==
LOC: HO.LAB 12:21
PROVIDERS: PCP Nurse Practitioner Family; Visit Provider Internal Medicine
DX: C18.9 Malignant neoplasm of colon, unspecified (principal); R19.4 Change in bowel habit; K21.9 Gastro-esophageal reflux disease without esophagitis; R53.83 Other fatigue
CPT/HCPCS: 36415; 82728; 83540; 85027

== ENCOUNTER 2025-05-06 12:21 | Outpatient (AMB) | payer BC, SELFPAY ==
--- NOTE | 2025-05-06 12:45 | MHC.OFFVIS ---
Vital Signs 05/06/25 12:49 Height 5 ft 4 in Weight 231 lb 7.766 oz BMI 39.7 BP 119/56 L Blood Pressure Location Lt brachial Position Sitting Pulse 79 Intake Visit Reasons: hx of colon cancer, screening Intake Note: New pt for recall colo screening? CC; States she had colon cancer in the past and she states that the past couple weeks she has noticed she is having more exhaustion and she does have a colotomy. She noticed that there is a differene in her bag and she noticed she stool is coming out in balls. Hotel Operation Manager Required: No Accompanied by: Self / Same As Patient Allergies codeine (CODEINE) Allergy (Mild, Verified 03/20/25 08:55) STOMACH UPSET lisinopril Allergy (Mild, Verified 05/06/25 12:50) Unknown latex (LATEX) Allergy (Unknown, Verified 03/20/25 08:55) ANAPHYLAXIS HPI Comments Details: 54 y.o F with PMH of obesity, fatty liver, T2DM, rectal cancer who is here for change in bowel habits. Pt has a hx of rectal ca in 2011 s/p colon resection as well as left ovary and fallopian tube removal (Dr Peter Cevallos). Now with LUQ stoma. Last colonoscopy was more than 5 years. Reports consistency of stool has changed over the last 2 weeks. Also feels more fatigued than usual. No red blood in stool. [facility] Medical History (Updated 05/06/25 @ 16:08 by Matilde Goncalves MD) Colon cancer Fatty liver Hammer toes, bilateral Uncontrolled type 2 diabetes mellitus with hyperglycemia Colorectal cancer Neuropathy Hyperlipemia Depressed Diabetes Surgical History (Updated 05/06/25 @ 12:50 by JOSE Miller) Hx of colonoscopy History of esophagogastroduodenoscopy (EGD) History of arthroscopy of right knee Social History Current occupational status: employed Current occupation: rt handed/[employer] Review of Systems Const All systems reviewed & are unremarkable except as noted in HPI and below Physical Exam Exam Exam: obese female NAD ABd soft, nontender, stoma in LUQ Vital Signs: Last Vital Signs Pulse 79 05/06/25 12:49 BP 119/56 L 05/06/25 12:49 BMI result Body Mass Index 39.7 Assessment & Plan Assessment & Plan (1) Colon cancer: Code(s): C18.9 - Malignant neoplasm of colon, unspecified Category: Medical (2) Change in bowel habit: Code(s): R19.4 - Change in bowel habit Category: Medical (3) GERD (gastroesophageal reflux disease): Code(s): K21.9 - Gastro-esophageal reflux disease without esophagitis Category: Medical Plan Patient is overdue for surveillance colonoscopy. In addition, also describing changes in stool consistency and increasing fatigue. Could be medication related, but given high-risk, needs a colonoscopy anyway. Plan: -urgent colonoscopy to be booked -PEG prep given an instructions reviewed -bisacodyl 10 mg b.i.d. to start 2 days prior to colonoscopy -patient aware to hold Mounjaro 1 dose prior to procedure -labs as below GERD Intermittent symptoms. Possibly diet related. GLP-1A likely contributing. Plan: -add famotidine 10 mg once daily (renally dosed) Follow-up after colonoscopy Orders: Orders Complete Blood Count no Diff Today R53.83 - Other fatigue IRON PROFILE Today R53.83 - Other fatigue Ferritin Today R53.83 - Other fatigue Referrals GI Procedure Notification C18.9 - Malignant neoplasm of colon, unspecified Medications: New bisacodyl start 2 days before colonoscopy 10 mg (2 x 5 mg) PO BID 8 tabs 0RF 2 days famotidine (Acid Airbrush Painter (famotidine)) 10 mg PO DAILY 90 tabs 0RF 90 days peg 3350-electrolytes 236-22.74-6.74 -5.86 gram (Golytely) as per split prep instructions, until fecal effluent is clear 240 mL PO Q10M 4,000 mL 0RF colonoscopy Coding Level of Care Code New Pt Level 4 (39727) Complex EM visit Add On G2211 Diagnoses Colon cancer C18.9 Change in bowel habit R19.4 GERD (gastroesophageal reflux disease) K21.9
[2025-05-06 12:49] VITALS: BP 119/56; PULSE 79; BMI 39.7
--- OUTSIDE RECORDS SUMMARY | 2025-05-06 13:48 | XMS_ITS | Clinical Summary ---
Author Organization [address] [place] [address] Address [address] [place] [address] Phone Care Team Providers Care Package Sealer Machine Name Role Phone Jade Fernandez PUTTY MIXER Primary Care Provider Allergies Active Allergy Reactions Criticality Noted Date Comments El Inhibitors Cough 02/24/2025 Codeine 02/24/2025 Latex 02/24/2025 Oxycodone-Acetaminophen 02/24/2025 Encounters Date Type Department Care Team Description 02/24/2025 10:15 AM EDT Office Visit Orthopedic Surgery [facility] [address] [phone] Mike Dutta DPM Controlled type 2 diabetes [...] 08/27/2025 10:30 AM EST Office Visit Orthopedic [facility] [address] [phone] Mike Dutta DPM [address] [address] Health Maintenance Due Date Last Done Comments Breast Cancer Screening 1968 Diabetes: Annual GFR (Glomerular Filtration Rate) 1968 Diabetes: Annual Foot Exam 1978 Diabetes: Annual Retina Eye Exam 1978 Hepatitis B Vaccines (1 of 3 - 19+ 3-dose series) 1987 Cervical Cancer Screening: Pap Smear 1989 Zoster Vaccines (1 of 2) 2018 Depression Screening 08/06/2024 DTaP,Tdap,and Td Vaccines (3 - Td or Tdap) 02/02/2025 02/02/2015, 12/16/2009 Cholesterol Screening (Lipid Panel) 02/12/2025 Colorectal Cancer Screening: Colonoscopy 02/12/2025 Diabetes: Annual Urine Albumin-Creatinine Ratio (uACR) 02/12/2025 Diabetes: Blood Sugar Control Test (HGBA1C) 02/12/2025 HIV Screening 02/12/2025 Hepatitis C Screening 02/12/2025 Social Influencers of Health Screening 02/12/2025 Hypertension/CHF/CAD Annual BMP Blood Test 02/24/2025 COVID-19 Vaccine ( season) 2025 04/04/2024, 05/17/2023, 06/12/2021, Additional history exists Influenza Vaccine (#1) 2025 , 05/02/2022, 06/04/2021, Additional history exists RSV Immunization Adult Patients (1 - 1-dose 75+ series) 2043 Pneumococcal Vaccine: 50+ Years Completed 07/26/2023, 12/14/2015, [...] patient's age to complete this topic Insurance [facility] Care Teams Package Sealer Machine Relationship Specialty Start Date End Date Jade Fernandez NP [address] [facility] [place] [address] PCP - General Nurse Practitioner 02/12/25
== END 2025-05-06 13:47 | disposition home or self-care (01) ==
LOC: HO.HGI 12:22
PROVIDERS: PCP Nurse Practitioner Family; Visit Provider Internal Medicine
DX: C18.9 Malignant neoplasm of colon, unspecified (principal); R19.4 Change in bowel habit; K21.9 Gastro-esophageal reflux disease without esophagitis
CPT/HCPCS: 99204

== ENCOUNTER 2025-05-19 08:20 | Outpatient (AMB) | payer BC, SELFPAY ==
--- OUTSIDE RECORDS SUMMARY | 2024-08-26 09:00 | XMS_ITS ---
Author Organization [facility] Address [address] [place] [address] Care Team Providers Care Groundhand Name Role Phone Jim TECHNICAL IMPLEMENTATION LEAD, Jade Primary Care Provider Unavail able Christal Helm Unavailable [phone] REASON FOR VISIT no ppwrk Encounters Encounter Location Date Provider Diagnosis [facility] [address] [place] [address] 08/26/2024 Christal Helm Plan Of Treatment No Information Progress Notes * Woody ISLASiDOB: [birth year] (54 yo F)Acc No.[id number]:08/26/2024 Progress Notes Patient: Katya NEVES Provider: Ramón Helm DPM :1970 A ge:54 Y S ex:Female Date:08/26/2024 Address:[address] [place], [place] [id number] Pcp:Jade Fernandez NP Subjective: * Chief Complaints: [...] 0 08/26/2024 Generated for Irene ann/Libertad/Aquilesitting on: 08:32 AM EDT
--- NOTE | 2025-05-19 08:22 | MHC.OFFVIS ---
Vital Signs 05/19/25 08:23 Height 5 ft 4 in Weight 233 lb 11.04 oz BMI 40.1 BP 114/70 Blood Pressure Location Rt brachial Position Sitting Pulse 80 Pulse Source Pulse Oximeter Pulse Oximetry (%) 96 Oxygen Delivery Method Room Air Intake Visit Reasons: T2DM Intake Note: Patient presents today for a follow-up on Type 2 Diabetes Mellitus and Hyperlipidemia: Last Diabetic eye exam was on: 03/2025, Ronny Harper Last Podiatry exam was on: Patient does not see a Water Filtration Technician Most recent HbA1c: 7.9% 03/20/25 Random Glucose- 101 mg/dL, Today Dumpling Machine Operator Required: No Accompanied by: Self / Same As Patient Allergies codeine (CODEINE) Allergy (Mild, Verified 05/19/25 08:25) STOMACH UPSET lisinopril Allergy (Mild, Verified 05/19/25 08:25) Unknown latex (LATEX) Allergy (Unknown, Verified 05/19/25 08:25) ANAPHYLAXIS Medication List - Last Reconciled 05/19/25 by Kim Aldridge MD amlodipine-olmesartan 5-20 mg 1 tab PO DAILY bisacodyl 10 mg (2 x 5 mg) PO BID 2 days blood sugar diagnostic (FreeStyle Lite Strips) tid blood-glucose meter (FreeStyle Lite Meter kit) As directed tid blood-glucose sensor ([employer] G7 Sensor device) every ten days continous bupropion HCl XL 450 mg PO DAILY cyclobenzaprine 10 mg PO TID PRN famotidine (Acid [facility] (famotidine)) 10 mg PO DAILY 90 days fluticasone propionate 50 mcg/actuation 1 spray intranasal BID glucagon 3 mg/actuation (Baqsimi) 3 mg intranasal ONCE insulin glargine U-300 conc (Toujeo Max U-300 SoloStar) 80 units (0.2667 mL) subcut DAILY insulin lispro (Humalog KwikPen (U-100) Insulin) 20 units (0.2 mL) subcut TID 90 days lancets (FreeStyle Lancets) tid magnesium 250 mg PO DAILY metformin 1,000 mg PO BID metoclopramide HCl (Reglan) 10 mg orally first day of taking mounjaro; omeprazole 20 mg PO BEDTIME peg 3350-electrolytes 236-22.74-6.74 -5.86 gram (Golytely) 240 mL PO Q10M pen needle, diabetic As directed pen needle, diabetic As directed 4 times day pen needle, diabetic (BD Sobia 2nd Gen Pen Needle) tid pioglitazone (Actos) 15 mg PO DAILY 30 days rosuvastatin 20 mg PO DAILY tirzepatide (Mounjaro) 5 mg (0.5 mL) subcut QWEEK venlafaxine ER 75 mg PO BEDTIME HPI Comments Details: 54 YO F who is seen in f/u for T2DM. Last seen March 2025. Initially diagnosed with T2DM at age 20. Dxed with gestational DM at age 18. a1c 7.9 % 03/20/25 A1C 12/05/24 8.3%, 12.9% 08/19/24. A1C had dropped to 7.6% in March 2024 while she was taking Tresiba. This was stopped due to insurance reasons and she is now on Toujeo. Prior therapy Was initially started on treatment with metformin. She had been on Lantus in the past prior to starting Tresiba and was not able to achieve an A1c less than 8%. She has been on multiple GLP 1 agonist for extended time frames including Victoza, Trulicity and Ozempic and did not achieve adequate glycemic control with these agents. She was then started on Mounjaro (started February 2025) and did well. She does struggle with depression and has had suicidal thoughts in the past with a prior suicide attempt. She feels she is doing much better with her depression since starting Effexor. She has a history of colon cancer 12 years ago and is overdue for a colonoscopy. She has seen Maren Wild MD in the past and has her contact information at [place] [facility]. At her last visit I again recommended that she follow up with Dr. Prasad but she has been unable to get an appointment there and has appt with GI May 2025 here at [place] Last colonoscopy was approximately 4 years ago. She also has fatty liver. Current regimen: Toujeo 80 units in AM Novolog with biggest meal of the day to as below <150: 0 units 150 - 200: 10 units 201 to 250 : 15 units >250 : 20 units metformin 1000 mg BID actos 15 mg Mounjaro 5 mg Qwkly Sunday (started February 2025, increased to 5 mg in March 2025, has had 7 injections of the 5 mg ) Random glucose 101 mg/dl Dexcom CGM downloaded from May 06 to 05/19/2025 Average glucose 184 mg/dL G OR 7.7% Coefficient of variation 29% Standard deviation 53 mg/dL Time CGM active 95% Within target range 48% High 41% Very high 11% Low 0% Very low 0% Interpretation: Has postprandial hyperglycemia mostly after breakfast and dinner Family history of T2DM in mother, grandmother . + retinopathy: Has eyes checked yearly: She sees a retinal specialist 03/30 [facility] + neuropathy. Does not see podiatry 03/30 +numbness, tingling, hammertoes + nephropathy, on ARB Has not seen nephrology, was given referral in the past 04/28/24 eGFR 48 11/14/23 microalbumin 7.0 She rarely takes ibuprofen. Has HLD, on rosuvastatin 20 mg . 11/2023 LDL 43 Denies CAD. Had diabetes education in the past. One daughter, 7 grand children Working night shifts now and she feels she is overeating. Has not been exercising. Has h/o colon cancer seeing GI at [facility] [place] [place] Enlarged liver on liver elastography without advanced fibrosis liver fibrosis wnl except liver A2 macroglobulin Physical exam General: sitting comfortably in no acute distress HEENT: normocephalic/atraumatic, , moist oral mucosa Neck: supple, Cardiac: normal heart sounds Pulm: normal breath sounds B/L, no added breath sounds Abd: not distended, no tenderness Extremities: no edema, no signs of myxedema Neuro: AAO x3, Speech: normal, no facial droop, moving all 4 extremities Laboratory Tests 11/14/23 11/14/23 04/28/24 07:45 07:46 07:57 Hgb 12.9 Hct 37.9 Plt Count 216 Glucose (Clinic) Hgb A1c (Clinic) AST 22 ALT 25 Triglycerides 160 H Cholesterol 127 LDL Cholesterol, Calc 43 HDL Cholesterol 52 Urine Creatinine 82.24 Urine Microalbumin 7.0 Microalb/Creat Ratio 8.5 08/19/24 12/05/24 02/04/25 08:44 09:48 08:08 Hgb Hct Plt Count Glucose (Clinic) 175 H Hgb A1c (Clinic) 12.6 H 8.3 H AST ALT Triglycerides Cholesterol LDL Cholesterol, Calc HDL Cholesterol Urine Creatinine Urine Microalbumin Microalb/Creat Ratio 03/20/25 08:58 Hgb Hct Plt Count Glucose (Clinic) 139 H Hgb A1c (Clinic) AST ALT Triglycerides Cholesterol LDL Cholesterol, Calc HDL Cholesterol Urine Creatinine Urine Microalbumin Microalb/Creat Ratio Laboratory Tests 05/06/25 05/19/25 13:43 08:28 Hgb 12.6 Hct 39.2 Plt Count 282 D Glucose (Clinic) 101 PFSH Medical History Colon cancer Fatty liver Hammer toes, bilateral Uncontrolled type 2 diabetes mellitus with hyperglycemia Colorectal cancer Neuropathy Hyperlipemia Depressed Diabetes Surgical History Hx of colonoscopy History of esophagogastroduodenoscopy (EGD) History of arthroscopy of right knee Family History (Updated 05/19/25 @ 08:26 by JOSE Rollins) Father No problems noted. Mother History of diabetes mellitus Social History Current occupational status: employed Current occupation: rt handed/[employer] Physical Exam Vital Signs: Last Vital Signs Pulse 80 05/19/25 08:23 BP 114/70 05/19/25 08:23 Pulse Ox 96 05/19/25 08:23 Oxygen Delivery Method Room Air 05/19/25 08:23 BMI result Body Mass Index 40.1 Office Procedures Glucose Monitoring Details Details: See HPI 51858 - Glucose monitoring, continuous-physician I&R Procedure code (CPT) selection complete Results Reviewed Results Reviewed: Laboratory Last Values Glucose (Clinic) 101 mg/dL (60-115) 05/19/25 08:28 Assessment & Plan Assessment & Plan (1) Uncontrolled type 2 diabetes mellitus with hyperglycemia: Code(s): E11.65 - Type 2 diabetes mellitus with hyperglycemia Category: Medical Plan: 54-year-old female with type 2 diabetes mellitus with complications of retinopathy, neuropathy, CKD, with long-term insulin use coming in today for follow up. A1c improved 03/20/2025 to 7.9% from 8.3% in 12/05/2024. Reviewed Dexcom data for the past 2 weeks which still shows she continues to have postprandial hyperglycemia. We will go up on the dose of Mounjaro as up titrate her NovoLog.. Plan: continue Toujeo 80 units in AM Novolog with biggest meal of the day to as below plus if you have another big meal second time of day <150: 6 units 150 - 200: 12 units 201 to 250 : 16 units >250 : 20 units metformin 1000 mg twice daily actos 15 mg daily increase Mounjaro to 7.5 Qwkly -due for repeat labs, these were ordered last visit, again told patient to do these. -follow up in 8-10 weeks Plan I spent 30 minutes in reviewing the record, seeing the patient and documenting in the medical record. Orders: Orders AMB Glucose Monitoring Today E11.65 - Type 2 diabetes mellitus with hyperglycemia Medications: New tirzepatide (Mounjaro) 7.5 mg (0.5 mL) subcut QWEEK 2 mL 6RF Discontinued tirzepatide (Mounjaro) Discontinued Reason: Doctor's Order 5 mg (0.5 mL) subcut QWEEK 2 mL 6RF E11.65 - Type 2 diabetes mellitus with hyperglycemia Patient Instructions: continue Toujeo 80 units in AM Novolog with biggest meal of the day to as below plus if you have another big meal second time of day <150: 6 units 150 - 200: 12 units 201 to 250 : 16 units >250 : 20 units metformin 1000 mg twice daily actos 15 mg daily increase Mounjaro to 7.5 Qwkly do fasting blood work and urine test prior to next appt Coding Level of Care Code Est Pt Level 4 (12416) Diagnoses Uncontrolled type 2 diabetes mellitus with hyperglycemia E11.65 CPT Codes Details - CPT: 01680 - Glucose monitoring, continuous-physician I&R ([id number]) Time Spent (min) 30
[2025-05-19 08:23] VITALS: BP 114/70; PULSE 80; O2SAT 96; BMI 40.1
--- OUTSIDE RECORDS SUMMARY | 2025-05-19 08:32 | XMS_ITS | Patient Health Record ---
Author Organization [facility] Address [address] [place] [address] Care Team Providers Care Hair Clipper Power Name Role Phone Jim PIG MACHINE OPERATOR HELPER, Jade Primary Care Provider Unavail able Christal Helm Unavailable [phone] Reason For Referral No Information Encounters Encounter Location Date Provider Diagnosis [facility] [address] [place] [address] 08/19/2024 Christal Helm Plan Of Treatment No Information Insurance Providers Payer Name Payer Address Payer Phone Subscriber Number Group Number Insured Name Patient Relationship to Insured Coverage Start Date Coverage End Date [facility] [address] [facility] [address] [id number] Katya Islas Self - patient is the insured
--- OUTSIDE RECORDS SUMMARY | 2025-05-19 08:32 | XMS_ITS | Clinical Summary ---
Author Organization [address] [place] [address] Address [address] [place] [address] Phone Care Team Providers Care Needle Punch Machine Operator Name Role Phone Jade Fernandez TEACHER LEARNING DISABLED Primary Care Provider Allergies Active Allergy Reactions Criticality Noted Date Comments El Inhibitors Cough 02/24/2025 Codeine 02/24/2025 Latex 02/24/2025 Oxycodone-Acetaminophen 02/24/2025 Encounters Date Type Department Care Team Description 02/24/2025 10:15 AM EDT Office Visit Orthopedic Surgery [facility] [address] [phone] Mike Dutta DPM Controlled type 2 diabetes [...] 08/27/2025 10:30 AM EST Office Visit Orthopedic [facility] [address] [phone] Mike Dutta DPM [address] [address] Health Maintenance Due Date Last Done Comments Breast Cancer Screening 1968 Colorectal Cancer Screening: Colonoscopy 1968 Diabetes: Annual GFR (Glomerular Filtration Rate) 1968 Diabetes: Annual Foot Exam 1978 Diabetes: Annual Retina Eye Exam 1978 Hepatitis B Vaccines (1 of 3 - 19+ 3-dose series) 1987 Cervical Cancer Screening: Pap Smear 1989 Zoster Vaccines (1 of 2) 2018 Depression Screening 08/06/2024 DTaP,Tdap,and Td Vaccines (3 - Td or Tdap) 02/02/2025 02/02/2015, 12/16/2009 Cholesterol Screening (Lipid Panel) 02/12/2025 Diabetes: Annual Urine Albumin-Creatinine Ratio (uACR) [...] patient's age to complete this topic Insurance [facility] Care Teams Needle Punch Machine Operator Relationship Specialty Start Date End Date Jade Fernandez NP [address] [facility] [place] [address] PCP - General Nurse Practitioner 02/12/25
[2025-05-19 08:33] LABS: Glucose, Whole Blood 101 mg/dL (60-115)
== END 2025-05-19 08:50 | disposition home or self-care (01) ==
LOC: HO.ENCR 08:21
PROVIDERS: PCP Nurse Practitioner Family; Visit Provider Student in an Organized Health Care Education/Training Program
DX: E11.65 Type 2 diabetes mellitus with hyperglycemia (principal)
CPT/HCPCS: 95251; 99214

== ENCOUNTER → 2025-05-19 08:20 | Outpatient (BNVA) | payer BC, SELFPAY | PROVIDERS: PCP Nurse Practitioner Family; Visit Provider Student in an Organized Health Care Education/Training Program | DX: E11.65 Type 2 diabetes mellitus with hyperglycemia (principal) | CPT/HCPCS: 82947 ==

== ENCOUNTER 2025-07-09 07:21 | Day surgery (SDC) | payer BC, SELFPAY ==
--- OUTSIDE RECORDS SUMMARY | 2024-08-26 09:00 | XMS_ITS ---
Author Organization [facility] Address [address] [place] [id number] Care Team Providers Care Director Case Name Role Phone Jim SPLICING MACHINE OPERATOR, Jade Primary Care Provider Unavail able Christal Helm Unavailable [phone] REASON FOR VISIT no ppwrk Encounters Encounter Location Date Provider Diagnosis [facility] [address] [place] [address] 08/26/2024 Christal Helm Plan Of Treatment No Information Progress Notes * Woody ISLASiDOB: 8 (54 yo F)Acc No.[id number]:08/26/2024 Progress Notes Patient: Katya NEVES Provider: Ramón Helm DPM :1970 A ge:54 Y S ex:Female Date:08/26/2024 Address:[address] [place], [place] [id number] Pcp:Jade Fernandez NP Subjective: * Chief Complaints: [...] 0 08/26/2024 Generated for Irene ann/Libertad/Aquilesitting on: 02:18 PM EDT
--- OUTSIDE RECORDS SUMMARY | 2025-06-02 14:18 | XMS_ITS | Patient Health Record ---
Author Organization [facility] Address [address] [place] [address] Care Team Providers Care Powder Carrier Name Role Phone Jim CALIBRATOR BAROMETERS, Jade Primary Care Provider Unavail able Christal Helm Unavailable [phone] Reason For Referral No Information Encounters Encounter Location Date Provider Diagnosis [facility] [address] [place] [address] 08/19/2024 Christal Helm Plan Of Treatment No Information Insurance Providers Payer Name Payer Address Payer Phone Subscriber Number Group Number Insured Name Patient Relationship to Insured Coverage Start Date Coverage End Date [facility] [address] [facility] [address] [id number] Katya Islas Self - patient is the insured
--- OUTSIDE RECORDS SUMMARY | 2025-06-02 14:18 | XMS_ITS | Clinical Summary ---
Author Organization [address] [facility] Address [address] [place] [address] Phone Care Team Providers Care Spotter Driver Name Role Phone Jade Fernandez CLOTHING PATTERNMAKER Primary Care Provider [phone] Allergies Active Allergy Reactions Criticality Noted Date Comments El Inhibitors Cough 02/24/2025 Codeine 02/24/2025 Latex 02/24/2025 Oxycodone-Acetaminophen 02/24/2025 Social History Tobacco Use Types Packs/Day Years [...] 08/27/2025 10:30 AM EST Office Visit Orthopedic Surgery [facility] [address] [place] [phone] Mike Dutta DPM [address] [place] [phone] Health Maintenance Due Date Last Done Comments Breast Cancer Screening 1968 Colorectal Cancer Screening: Colonoscopy 1968 Diabetes: Annual GFR (Glomerular Filtration Rate) 1968 Diabetes: Annual Foot Exam 1978 Diabetes: Annual Retina Eye Exam 1978 Hepatitis B Vaccines (1 of 3 - 19+ 3-dose series) 1987 Cervical Cancer Screening: Pap Smear 1989 RSV Immunization Adult Patients (1 - Risk 50-74 years 1-dose series) 2018 Zoster Vaccines (1 of 2) 2018 Depression [...] patient's age to complete this topic Insurance [facility] Care Teams Spotter Driver Relationship Specialty Start Date End Date Jade Fernandez NP [address] [facility] [place] [address] PCP - General Nurse Practitioner 02/12/25
--- NOTE | 2025-07-06 12:58 | HO.ANESPROP2 ---
Documented by User: Ashanti Page NP 07/06/25 13:11 HPI - Anesthesia Eval Consult details Narrative: 55 yr old female for colonoscopy BMI 40 Uncontrolled Type 2 DM: A1C 7.9% GERD on PPI Anesthesia Pre-Procedure Meds Is the patient on any of the following meds?: GLP1/DPP4 PMFSH Active Problems Active Problems: All Active Problems GERD (gastroesophageal reflux disease) (Acute) Change in bowel habit (Acute) Fatigue (Acute) Colon cancer (Acute) Neuropathy (Acute) Depressed (Acute) Hammer toes, bilateral (Acute) Chronic kidney disease (CKD) stage G3a/A1, moderately decreased glomerular filtration rate (GFR) between 45-59 mL/min/1.73 square meter and albuminuria creatinine ratio less than 30 mg/g (Acute) Uncontrolled type 2 diabetes mellitus with hyperglycemia (Acute) Sprain of lateral collateral ligament of left knee (Acute) Past Medical History Medical History Colostomy in place PATRICIA (obstructive sleep apnea) HTN (hypertension) Colostomy in place Colon cancer Fatty liver Hammer toes, bilateral Uncontrolled type 2 diabetes mellitus with hyperglycemia Colorectal cancer Neuropathy Hyperlipemia Depressed Diabetes Family History Family History Father No problems noted. Mother History of diabetes mellitus Surgical History Surgical History Hx of tonsillectomy Hx of colonoscopy History of esophagogastroduodenoscopy (EGD) History of arthroscopy of right knee Social History Social History Patient Tobacco Use Status: Former Tobacco user Use of substances other than those prescribed or required for medical reasons: No Are you DNR?: No Advance Directives: No Advance Directives Information Provided: Yes Patient : No : No Current occupational status: employed Current occupation: rt [employer] Meds Allergies Allergy/AdvReac Type Severity Reaction Status Date / Time latex (LATEX) Allergy Severe ANAPHYLAXIS Verified 07/09/25 08:10 codeine (CODEINE) Allergy Mild STOMACH Verified 05/19/25 08:25 UPSET lisinopril AdvReac Mild Cough Verified 07/09/25 08:10 Home Medications ?Medication ?Instructions ?Recorded ?Confirmed ?Last Taken ?Type cyclobenzaprine 10 mg tablet 10 mg PO TID PRN Muscle Spasm 03/01/21 07/07/25 Unknown History fluticasone propionate 50 1 spray intranasal BID 03/01/21 07/07/25 Unknown History mcg/actuation nasal spray,suspension metformin 1,000 mg tablet 1,000 mg PO BID 03/01/21 07/07/25 Unknown History pen needle, diabetic 29 gauge x #100 ea 03/01/21 05/19/25 Unknown History 1/2 amlodipine 5 mg-olmesartan 20 mg 1 tab PO DAILY 12/05/22 07/07/25 07/09/25 History tablet bupropion HCl 300 mg 24 hr tablet, 450 mg PO DAILY 12/05/22 07/07/25 Unknown History extended release pen needle, diabetic 31 gauge x #50 ea 12/05/22 05/19/25 Unknown History 3/16 metoclopramide HCl 10 mg tablet 10 mg PO .COMPLEX 05/02/24 07/07/25 Unknown History (Reglan) rosuvastatin 20 mg tablet 20 mg PO DAILY 03/20/25 07/07/25 Unknown History magnesium 250 mg tablet 250 mg PO DAILY 05/06/25 07/07/25 Unknown History omeprazole 20 mg capsule,delayed 20 mg PO BEDTIME 05/06/25 07/07/25 07/09/25 History release venlafaxine 75 mg capsule,extended 75 mg PO BEDTIME 05/06/25 07/07/25 Unknown History release 24 hr Exam Pertinent Lab Results Pertinent Lab Results: Laboratory Tests 04/28/24 05/06/25 07:57 13:43 WBC 8.0 RBC 4.41 Hgb 12.6 Hct 39.2 Plt Count 282 D Sodium 138 Potassium 4.7 BUN 16 Creatinine 1.18 Documented by User: Justin Bravo MD 07/09/25 09:13 PMFSH Past Medical History Medical History Colostomy in place PATRICIA (obstructive sleep apnea) HTN (hypertension) Colostomy in place Colon cancer Fatty liver Hammer toes, bilateral Uncontrolled type 2 diabetes mellitus with hyperglycemia Colorectal cancer Neuropathy Hyperlipemia Depressed Diabetes Cognitive capacity: normal Functional capacity: independent ambulation Family History Family History Father No problems noted. Mother History of diabetes mellitus Family history of problems with anesthesia: No Surgical History Surgical History Hx of tonsillectomy Hx of colonoscopy History of esophagogastroduodenoscopy (EGD) History of arthroscopy of right knee History of Problems with Anesthesia: No Social History Social History Patient Tobacco Use Status: Former Tobacco user Use of substances other than those prescribed or required for medical reasons: No Are you DNR?: No Advance Directives: No Advance Directives Information Provided: Yes Patient : No : No Current occupational status: employed Current occupation: rt handed/[employer] Meds Allergies Allergy/AdvReac Type Severity Reaction Status Date / Time latex (LATEX) Allergy Severe ANAPHYLAXIS Verified 07/09/25 08:10 codeine (CODEINE) Allergy Mild STOMACH Verified 05/19/25 08:25 UPSET lisinopril AdvReac Mild Cough Verified 07/09/25 08:10 Home Medications ?Medication ?Instructions ?Recorded ?Confirmed ?Last Taken ?Type cyclobenzaprine 10 mg tablet 10 mg PO TID PRN Muscle Spasm 03/01/21 07/07/25 Unknown History fluticasone propionate 50 1 spray intranasal BID 03/01/21 07/07/25 Unknown History mcg/actuation nasal spray,suspension metformin 1,000 mg tablet 1,000 mg PO BID 03/01/21 07/07/25 Unknown History pen needle, diabetic 29 gauge x #100 ea 03/01/21 05/19/25 Unknown History 1/2 amlodipine 5 mg-olmesartan 20 mg 1 tab PO DAILY 12/05/22 07/07/25 07/09/25 History tablet bupropion HCl 300 mg 24 hr tablet, 450 mg PO DAILY 12/05/22 07/07/25 Unknown History extended release pen needle, diabetic 31 gauge x #50 ea 12/05/22 05/19/25 Unknown History 10/19 metoclopramide HCl 10 mg tablet 10 mg PO .COMPLEX 05/02/24 07/07/25 Unknown History (Reglan) rosuvastatin 20 mg tablet 20 mg PO DAILY 03/20/25 07/07/25 Unknown History magnesium 250 mg tablet 250 mg PO DAILY 05/06/25 07/07/25 Unknown History omeprazole 20 mg capsule,delayed 20 mg PO BEDTIME 05/06/25 07/07/25 07/09/25 History release venlafaxine 75 mg capsule,extended 75 mg PO BEDTIME 05/06/25 07/07/25 Unknown History release 24 hr Exam Exam Date and Time: 07/09/2025 Airway TM Dist: >3cm Heart: rrr Lungs: cta Other: normal Assessment and Plan Assessment Anesthesia Assessment: Anesthesia Plan Discussed Final Anesthetic Review Family History of Problems with Anesthesia: No History of Problems with Anesthesia: No NPO: Yes ASA Class: III Final Preanesthetic Review: No Changes in Pt Med Stat, Meds/Allgs Chart Reviewed, Consent Obtained/Reviewed and Anes Risks/Benef Reviewed Patient Risk: Intermediate Procedure Risk: Low Anesthetic Plan Anesthetic Plan: MAC: Disposition: Standard PACU
[2025-07-07 12:26] VITALS: BMI 40.1
--- NOTE | 2025-07-09 07:55 | MHC.SHP ---
Pre-Procedural Eval Section A - 24 Hr Update-Section A only Date of Service: 07/09/25 Section B - Complete if H&P > 30 days Chief Complaint: Hx of CRC Details of Present Illness: Colon cancer Fatty liver Hammer toes, bilateral Uncontrolled type 2 diabetes mellitus with hyperglycemia Colorectal cancer Neuropathy Hyperlipemia Depressed Diabetes Surgical History (Updated 05/06/25 @ 12:50 by JOSE Miller) Hx of colonoscopy History of esophagogastroduodenoscopy (EGD) History of arthroscopy of right knee Present Medications: see Short Stay Collaborative assessment Allergies: Allergies Allergy/AdvReac Type Severity Reaction Status Date / Time codeine (CODEINE) Allergy Mild STOMACH Verified 05/19/25 08:25 UPSET lisinopril Allergy Mild Unknown Verified 05/19/25 08:25 latex (LATEX) Allergy Unknown ANAPHYLAXIS Verified 05/19/25 08:25 Review of Systems Review of Systems Comment: Ten point ROS negative Exam Exam Comment: Gen appear: No acute distress HEENT: no icterus Chest: No overt resp distress Abd: soft, nontender, nondistended Psych: Stable affect, answering questions appropriately Neuro: A/Ox3 noted to move all extremities spontaneously Ext: no peripheral edema Plan Diagnosis/Plan: Unchanged I have reviewed the history and physical and performed a pertinent physical examination on my patient. No changes have occurred unless specified. Time Spent With Patient Time: Total time managing care of this patient today ____ minutes.
[2025-07-09 08:17] VITALS: BMI 37.1
[2025-07-09 08:19] VITALS: BP 123/54; PULSE 87; RESP 16; TEMP 35.8; O2SAT 97
[2025-07-09 08:31] LABS: Glucose, Whole Blood 151 mg/dL (60-115)
[2025-07-09] MEDS: Lactated Ringers 1,000 ML 100 ML IVCONT (08:35)
[2025-07-09 10:35] VITALS: BP 91/52; PULSE 73; RESP 16; TEMP 36.3; O2SAT 98
--- NOTE | 2025-07-09 10:36 | HO.OPN-COLON ---
Colonoscopy Operative Note Operative Note Date of Service: 07/09/25 Narrative: Procedure: Colonoscopy Indication: Personal hx of CRC Endoscopist: Matilde Goncalves MD Anesthesia Provider: Dr Bravo Anesthesia type: MAC Instrument: Olympus [id number]-[id number] Consent: Indication, risks vs benefits, and alternatives were discussed with the patient who gave written informed consent to proceed. EKG, pulse, pulse oximetry and blood pressure were monitored throughout the procedure. Please see anesthesia flowsheet. Procedure: The patient was brought to the procedure room and placed in the left lateral decubitus position facing the endoscopist as her stoma is in LLQ. IV medications were administered by the anesthesia provider in attendance. A digital rectal exam was performed which did not reveal maribel abnormalities in anal canal, rectum is closed off. The colostomy bag was left in place and the stoma was accessed through the appliance. The colonoscope was then inserted through the stoma and advanced through the colon to the cecum at 65 cm. Appendiceal orifice could not be visualized. Ileocecal valve was identified. Mucosa was carefully examined under high definition white light as the instrument was slowly withdrawn in a retrograde panoramic fashion. Retroflexion was performed in ascending colon. The procedure was not difficult. There were no immediate obvious complications. The quality of the prep was BBPS: 0+2+N/A = inadequate Withdrawal time 7 minutes. Limitations: Poor prep. Findings: Mucosa: Copious opaque liquid stool was present throughout the colon. The mucosa in the cecal pouch could not be visualized at all despite extensive suctioning and flushing. No large masses were noted. Impression: 1. Poor prep 2. Colon mucosa normal to the extent visualized 3. Healthy-appearing stoma Recommendations: - Repeat colonoscopy will be booked within 6 months
== END 2025-07-09 11:39 | disposition home or self-care (01) ==
PROVIDERS: PCP Nurse Practitioner Family; Visit Provider Internal Medicine
PROC: 0DJD8ZZ Inspection of Lower Intestinal Tract, Via Natural or Artificial Opening Endoscopic (ICD-10-PCS; CPT 45378; principal; 2025-07-09 09:10)
DX: R19.4 Change in bowel habit (principal); Z85.048 Personal history of other malignant neoplasm of rectum, rectosigmoid junction, and anus; Z85.038 Personal history of other malignant neoplasm of large intestine; Z90.49 Acquired absence of other specified parts of digestive tract; Z93.3 Colostomy status; E66.9 Obesity, unspecified; Z68.39 Body mass index [BMI] 39.0-39.9, adult; R53.83 Other fatigue; K76.0 Fatty (change of) liver, not elsewhere classified; E11.65 Type 2 diabetes mellitus with hyperglycemia; G62.9 Polyneuropathy, unspecified; E78.5 Hyperlipidemia, unspecified; K21.9 Gastro-esophageal reflux disease without esophagitis; F32.A Depression, unspecified; G47.33 Obstructive sleep apnea (adult) (pediatric); Z88.5 Allergy status to narcotic agent; Z88.8 Allergy status to other drugs, medicaments and biological substances; Z91.040 Latex allergy status; Z98.890 Other specified postprocedural states
CPT/HCPCS: 44388; 82947; J2003; J2704; J3010

== ENCOUNTER → 2025-07-09 07:21 | Outpatient (BNV) | payer BC, SELFPAY | PROVIDERS: PCP Nurse Practitioner Family; Visit Provider Internal Medicine | DX: Z12.11 Encounter for screening for malignant neoplasm of colon (principal); Z85.038 Personal history of other malignant neoplasm of large intestine; Z91.199 Patient's noncompliance with other medical treatment and regimen due to unspecified reason | CPT/HCPCS: 45378 ==

== ENCOUNTER 2025-07-27 10:16 | Outpatient (AMB) | payer BC, SELFPAY ==
--- NOTE | 2025-07-27 10:19 | MHC.OFFVIS ---
Vital Signs 07/27/25 10:20 Height 5 ft 4 in Weight 209 lb 7.026 oz BMI 35.9 BP 119/61 Blood Pressure Location Lt brachial Position Sitting Pulse 89 Intake Visit Reasons: s/p colo Intake Note: Manisha presents in the office as a follow up for colonosocpy. CC: States she is here for results and states pamela is helping a lot. Garage Hand Required: No Allergies latex (LATEX) Allergy (Severe, Verified 07/27/25 10:23) ANAPHYLAXIS codeine (CODEINE) Allergy (Mild, Verified 07/27/25 10:23) STOMACH UPSET lisinopril Adverse Reaction (Mild, Verified 07/27/25 10:23) Cough HPI Comments Details: 54 y.o F with PMH of obesity, fatty liver, T2DM, rectal cancer who is here for change in bowel habits. Pt has a hx of rectal ca in 2011 s/p colon resection as well as left ovary and fallopian tube removal (Dr Peter Cevallos). Now with LUQ stoma. Last colonoscopy was more than 5 years. Reports consistency of stool has changed over the last 2 weeks. Also feels more fatigued than usual. No red blood in stool. 07/09/25: 1. Poor prep 2. Colon mucosa normal to the extent visualized 3. Healthy-appearing stoma 07/27/25: Here for follow up. No acute issues. Reports persistent constipation with BM every 2-3 days but when she does have a BM its liquid. Hydration is limited to 2-3 cups of water a day. Does not take any fiber in diet. No abd distention or bloating. Nausea and belching resolved with famotidine. Pt aware that will be called by office to jett a repeat colo. PFSH Medical History Colostomy in place PATRICIA (obstructive sleep apnea) HTN (hypertension) Colostomy in place Colon cancer Fatty liver Hammer toes, bilateral Uncontrolled type 2 diabetes mellitus with hyperglycemia Colorectal cancer Neuropathy Hyperlipemia Depressed Diabetes Surgical History Hx of tonsillectomy Hx of colonoscopy History of esophagogastroduodenoscopy (EGD) History of arthroscopy of right knee Family History Father No problems noted. Mother History of diabetes mellitus Social History Patient Tobacco Use Status: Former Tobacco user Current occupational status: employed Current occupation: rt handed/[employer] Review of Systems Const All systems reviewed & are unremarkable except as noted in HPI and below Physical Exam Exam Exam: No apparent distress Nonicteric Abdomen soft, nondistended, colostomy in LUQ empty (pt changed right before appt) Alert and oriented x3, normal gait Vital Signs: Last Vital Signs Pulse 89 07/27/25 10:20 BP 119/61 07/27/25 10:20 BMI result Body Mass Index 35.9 Assessment & Plan Assessment & Plan (1) Personal history of rectal cancer: Code(s): Z85.048 - Personal history of other malignant neoplasm of rectum, rectosigmoid junction, and anus Category: Medical (2) Change in bowel habit: Code(s): R19.4 - Change in bowel habit Category: Medical (3) GERD (gastroesophageal reflux disease): Code(s): K21.9 - Gastro-esophageal reflux disease without esophagitis Category: Medical Plan 1. Hx of rectal ca. Recent colo was poor prep. No large masses were noted but pt aware this was not adequate for polyp surveillance. Will be sandi for a repeat colo within 6 months. Plan: - Advised to start bisacodyl 10 mg BID x 2 days prior to next colo - CLD the day before - PEG prep the day before - pt to consume ALL of the 4L prep 2. Chronic constipation Likely a combination of limited hydration, fiber use and GLP-1A may be contributing as well. PLan: - Increase water intake to at least 8-10 cups per day - Add miralax daily or every other day - Daily psyllium 1 tsp mixed in 8oz cup of water 3. GERD Was having intermittent symptoms - resolved with famotidine 10 mg once daily Follow up after repeat colo Orders: Referrals GI Procedure Notification Z85.038 - Personal history of other malignant neoplasm of large intestine Medications: New polyethylene glycol 3350 (Miralax) 17 grams PO DAILY 238 grams 1RF psyllium mix into at least 4 oz water or juice before administering 1 tsp PO DAILY 300 grams 0RF 90 days Coding Level of Care Code Est Pt Level 4 (79074) Diagnoses Personal history of rectal cancer Z85.048 Change in bowel habit R19.4 GERD (gastroesophageal reflux disease) K21.9
[2025-07-27 10:20] VITALS: BP 119/61; PULSE 89; BMI 35.9
--- OUTSIDE RECORDS SUMMARY | 2025-07-27 12:26 | XMS_ITS | Clinical Summary ---
Author Organization [address] [facility] Address [address] [place] [address] Phone Care Team Providers Care Grease Maker Name Role Phone Jade Fernandez [employer]IXING [employer] DUMPER Primary Care Provider [phone] Allergies Active Allergy Reactions Criticality Noted Date [...] Encounters Date Type Department Care Team (Late Contact Info) Description 08/27/2025 10:30 AM EST Office Visit Orthopedic Surgery - [place] [id number] [id number] Mike Dutta, DPSimone [address] [address] Health Maintenance Due Date Last Done Comments [...] patient's age to complete this topic Insurance [facility] Care Teams Grease Maker Relationship Specialty Start Date End Date Jade Fernandez NP [address] [facility] [place] [address] PCP - General Nurse Practitioner 02/12/25
== END 2025-07-27 10:51 | disposition home or self-care (01) ==
LOC: HO.HGI 10:16
PROVIDERS: PCP Nurse Practitioner Family; Visit Provider Internal Medicine
DX: Z85.048 Personal history of other malignant neoplasm of rectum, rectosigmoid junction, and anus (principal); R19.4 Change in bowel habit; K21.9 Gastro-esophageal reflux disease without esophagitis
CPT/HCPCS: 99214

== ENCOUNTER 2025-07-27 10:16 | Outpatient (REF) | payer BC, SELFPAY ==
--- OUTSIDE RECORDS SUMMARY | 2024-08-26 08:00 | XMS_ITS ---
Author Organization [facility] Address [address] [place] [id number] Care Team Providers Care Logging Supervisor Name Role Phone Jim DRAWING IN MACHINE TENDER HELPER, Jade Primary Care Provider Unavail able Christal Helm Unavailable [phone] REASON FOR VISIT no ppwrk Encounters Encounter Location Date Provider Diagnosis [facility] [address] [place] [address] 08/26/2024 Christal Helm Plan Of Treatment No Information Progress Notes * Woody ISLASiDOB: 8 (55 yo F)Acc No.[id number]:08/26/2024 Progress Notes Patient: Katya NEVES Provider: Ramón Helm DPM :1970 A ge:54 Y S ex:Female Date:08/26/2024 Address:[address] [place], [place] [id number] Pcp:Jade Fernandez NP Subjective: * Chief Complaints: * 1 . No ppwrk. * Medical History: Objective: * Vitals: Assessment: Plan: * Treatment: * Images: * The named appointment provid er may or may not be the originator of this progress note, and it is not deemed complete until electronically signed by the appointment provider. Sign off status: Pending * Provider: Ramón Helm DPM Date: 0 08/26/2024 Generated for Irene ann/Libertad/Aquilesitting on: 09/27/2024 01:37 PM EST
[2025-07-27 11:34] LABS: Hematocrit 41.9 % (37.0-47.0); Hemoglobin 13.4 g/dl (12.0-16.0); Mean Corpuscular HGB Conc 32.0 g/dl (31.0-35.0); Mean Corpuscular Hemoglobin 28.9 pg (27.0-33.0); Mean Corpuscular Volume 90.3 fL (80.0-98.0); NRBC Abs Auto 0.000 X10*3/uL (0.0-0.012); NRBC Pct Auto 0.0 /100WBC (0.0-0.2); Platelet Count 285 X10*3/uL (160-400); Red Blood Count 4.64 X10*6/uL (4.20-5.50); White Blood Count 7.2 X10*3/uL (4.8-10.8)
[2025-07-27 12:03] LABS: Alanine Aminotransferase 19 U/L (0-31); Aspartate Amino Transferase 25 U/L (5-31); Cholesterol 171 mg/dL (<200); Estimated Glomerular Filt Rate 60; HDL Cholesterol 55 mg/dL (>40); Triglycerides 151 mg/dL (<150)
[2025-07-27 12:22] LABS: Microalbum/Creatinine Ratio Ur 14.0 ug/mg cr (<30)
[2025-07-27 12:32] LABS: Vitamin B12 410 pg/mL (200-900)
--- OUTSIDE RECORDS SUMMARY | 2025-07-27 13:37 | XMS_ITS | Patient Health Record ---
Author Organization [facility] Address [address] [place] [address] Care Team Providers Care Blackjack Dealer Name Role Phone Jim PATTERN GRADER CUTTER, Jade Primary Care Provider Unavail able Christal Helm Unavailable [phone] Reason For Referral No Information Encounters Encounter Location Date Provider Diagnosis [facility] [address] [place] [address] 08/19/2024 Christal Helm Plan Of Treatment No Information Insurance Providers Payer Name Payer Address Payer Phone Subscriber Number Group Number Insured Name Patient Relationship to Insured Coverage Start Date Coverage End Date [facility] [address] [facility] [id number] [phone] [id number] Katya Islas Self - patient is the insured
== END 2025-07-27 10:17 | disposition home or self-care (01) ==
LOC: HO.LAB 10:16
PROVIDERS: Student in an Organized Health Care Education/Training Program; PCP Nurse Practitioner Family; Visit Provider Internal Medicine
DX: K21.9 Gastro-esophageal reflux disease without esophagitis (principal); K59.09 Other constipation; E11.65 Type 2 diabetes mellitus with hyperglycemia; Z85.048 Personal history of other malignant neoplasm of rectum, rectosigmoid junction, and anus; Z87.891 Personal history of nicotine dependence
CPT/HCPCS: 36415; 80061; 82043; 82565; 82570; 82607; 84450; 84460; 85027

== ENCOUNTER 2025-07-28 08:20 | Outpatient (AMB) | payer BC, SELFPAY ==
--- OUTSIDE RECORDS SUMMARY | 2024-08-26 08:00 | XMS_ITS ---
Author Organization [facility] Address [address] [place] [id number] Care Team Providers Care Court Messenger Name Role Phone Jim ROBOTIC WELDER, Jade Primary Care Provider Unavail able Christal Helm Unavailable [phone] REASON FOR VISIT no ppwrk Encounters Encounter Location Date Provider Diagnosis [facility] [address] [place] [address] 08/26/2024 Christal Helm Plan Of Treatment No Information Progress Notes * Woody ISLASiDOB: 8 (55 yo F)Acc No.[id number]:08/26/2024 Progress Notes Patient: Katya NEVES Provider: Ramón Helm DPM :1970 A ge:54 Y S ex:Female Date:08/26/2024 Address:[address] [place], [place] [id number] Pcp:Jade Fernandez NP Subjective: * Chief Complaints: [...] 0 08/26/2024 Generated for Irene ann/Libertad/Aquilesitting on: 09/28/2024 08:28 AM EST
--- NOTE | 2025-07-28 08:24 | A.OFFVIS_ITS ---
Vital Signs 07/28/25 08:25 Height 5 ft 4 in Weight 209 lb 13.574 oz BMI 36.0 BP 122/68 Blood Pressure Location Rt brachial Position Sitting Pulse 86 Pulse Source Pulse Oximeter Oxygen Delivery Method Room Air Intake Visit Reasons: T2DM Intake Note: Patient presents today for a follow-up on Type 2 Diabetes Mellitus Hyperlipidemia: Last Diabetic eye exam was on: 03/2025, Ronny Harper Last Podiatry exam was on: Patient does not see a Santa'S Helper Most recent HbA1c: 6.4%, 07/28/2025 Random Glucose- 163 mg/dL, Today Apartment Assistant Manager Required: No Accompanied by: Self / Same As Patient Allergies latex (LATEX) Allergy (Severe, Verified 07/28/25 08:28) ANAPHYLAXIS codeine (CODEINE) Allergy (Mild, Verified 07/28/25 08:28) STOMACH UPSET lisinopril Adverse Reaction (Mild, Verified 07/28/25 08:28) Cough Medication List - Last Reconciled 07/28/25 by HEATHER Sotelo amlodipine-olmesartan 5-20 mg 1 tab PO DAILY blood sugar diagnostic (FreeStyle Lite Strips) tid blood-glucose meter (FreeStyle Lite Meter kit) As directed tid blood-glucose sensor (Cloudy.frcom G7 Sensor device) every ten days continous bupropion HCl XL 450 mg PO DAILY cyclobenzaprine 10 mg PO TID PRN famotidine (Acid Lead Operator (famotidine)) 10 mg PO DAILY 90 days fluticasone propionate 50 mcg/actuation 1 spray intranasal BID glucagon 3 mg/actuation (Baqsimi) 3 mg intranasal ONCE insulin glargine U-300 conc (Toujeo Max U-300 SoloStar) 76 units subcut DAILY insulin lispro (Humalog KwikPen (U-100) Insulin) 20 units (0.2 mL) subcut TID 90 days lancets (FreeStyle Lancets) tid magnesium 250 mg PO DAILY metformin 1,000 mg PO BID metoclopramide HCl (Reglan) 10 mg orally first day of taking mounjaro; omeprazole 20 mg PO BEDTIME pen needle, diabetic As directed pen needle, diabetic As directed 4 times day pen needle, diabetic (BD Sobia 2nd Gen Pen Needle) tid pioglitazone (Actos) 15 mg PO DAILY 30 days polyethylene glycol 3350 (Miralax) 17 grams PO DAILY psyllium 1 tsp PO DAILY 90 days rosuvastatin 10 mg PO DAILY tirzepatide (Mounjaro) 7.5 mg (0.5 mL) subcut QWEEK venlafaxine ER 150 mg PO DAILY venlafaxine ER 75 mg PO BEDTIME HPI Comments Details: This is a 55-year-old female seen today fo management of type 2 diabetes. She was initially diagnosed with type 2 diabetes at the age of 20. She had gestational diabetes at age 18. Hemoglobin A1c 6.4% today down from 7.9%. Reviewed CGM data for the past 2 weeks G KS 7.3% Coefficient of variation 28.6% Time in range 2% very high 39% high 57% in range 2% low 0% very low My interpretation is that she has hyperglycemia nocturnally and in the morning. Current regimen: Toujeo 80 units in the morning NovoLog sliding scale with biggest meal of the day: Less than 150 6 units, 150- 200 12 units, 201-250 16 units, greater than 250 20 units (she has not been using this due to lows) Metformin 1000 mg twice daily Actos 15 mg daily Mounjaro 7.5 mg weekly Hypoglycemia: This can occur anytime. She works 11pm to 7 am. Sometimes she will get home and not eat which results in low sugar. She is symptomatic. She treats with peanut butter, crackers, protein bar or juice. Past medications: Tresiba discontinued due to insurance reasons. Complications: Nephropathy (CKD stage IIIA), neuropathy, bilateral retinopathy (NE retina). She has gastroparesis for which she is on Reglan. Hyperlipidemia is treated with rosuvastatin. Hypertension is treated with amlodipine-olmesartan. She followed up with [facility]. She had a colonoscopy, prep was poor, she will repeat this in 6 months. Her has gone through multiple foot surgeries and had multiple bouts of sepsis since May. Patient is under the care of a psychiatrist, and they are adjusting her medication. ROS: Constitutional: No fevers or chills. Endorses weight loss on GLP 1. Gastrointestinal: No vomiting or abdominal pain. Patient is starting bowel regimen with MiraLax and fiber per gastro. Neurologic: Endorses numbness and tingling in her feet , more noticeable at night. Endocrine: Denies polyuria or polydipsia Physical exam: Constitutional: Alert, in no distress. Neck: Supple, Full range of motion. No lymphadenopathy. No palpable thyroid masses. Respiratory: Clear to auscultation. Cardiovascular: S1 S2 regular. No murmurs. Right foot: Warm and well perfused. No clubbing, cyanosis or edema. Intact DP pulse. Decreased vibratory sensation. Decreased sensation to monofilament. No open wounds. Left foot: Warm and well perfused. No clubbing, cyanosis or edema. Intact DP pu lse. Decreased vibratory sensation. Decrease sensation to monofilament. No open wounds. [facility] Medical History (Updated 07/28/25 @ 09:14 by HEATHER Sotelo) Essential hypertension Pure hypercholesterolemia Controlled type 2 diabetes mellitus [address] in place PATRICIA (obstructive sleep apnea) HTN (hypertension) Colostomy in place Colon cancer Fatty liver Hammer toes, bilateral Uncontrolled type 2 diabetes mellitus with hyperglycemia Colorectal cancer Neuropathy Hyperlipemia Depressed Diabetes Surgical History Hx of tonsillectomy Hx of colonoscopy History of esophagogastroduodenoscopy (EGD) History of arthroscopy of right knee Family History Father No problems noted. Mother History of diabetes mellitus Social History Patient Tobacco Use Status: Former Tobacco user Current occupational status: employed Current occupation: rt handed/[employer] Physical Exam Vital Signs: Last Vital Signs BP 122/68 07/28/25 08:25 BMI result Body Mass Index 36.0 Office Procedures Glucose Monitoring Details Details: See HPI 54156 - Glucose monitoring, continuous-physician I&R Procedure code (CPT) selection complete Results AMB Hemoglobin A1c AMB Hemoglobin A1c 6.4 % Last Edit by JOSE Rollins on 07/28/25 08:44 Results Reviewed Results Reviewed: Laboratory Tests 07/27/25 07/27/25 10:57 11:05 Creatinine 0.96 Estimated GFR 60 AST 25 ALT 19 Triglycerides 151 H Cholesterol 171 LDL Cholesterol, Calc 86 HDL Cholesterol 55 Vitamin B12 410 Urine Creatinine 85.49 Urine Microalbumin 12.0 Microalb/Creat Ratio 14.0 Assessment & Plan Assessment & Plan (1) Controlled type 2 diabetes mellitus: Code(s): E11.9 - Type 2 diabetes mellitus without complications Category: Medical (2) Pure hypercholesterolemia: Code(s): E78.00 - Pure hypercholesterolemia, unspecified Category: Medical (3) Essential hypertension: Code(s): I10 - Essential (primary) hypertension Category: Medical Plan In summary this is a 55-year-old female with controlled type 2 diabetes with complications. She will reduce her dose of Toujeo to 76 units daily due to hypoglycemia. If her GMI is not under 7% after making this change she will contact the office. Continue Mounjaro 7.5 mg weekly. We will try to maintain this dose given the patient's underlying gastrointestinal issues. Continue metformin a 1000 mg twice daily. Continue Actos 15 mg daily. Continue rosuvastatin for hyperlipidemia. Hypertension is well-controlled. She is on an Arb for renal protection. Diabetic diet reviewed. Discussed treatment hypoglycemia: If you experience low blood sugar, treat this by eating a chewable fruit candy like skittles or jelly beans (about 8 pieces), 4 ounces (1/2 cup) of fruit juice (not diet), 1 tablespoon of honey or 4 glucose tablets. If your blood sugar is under 50, take double the amount of one of the above. Recheck your blood sugar in 15 minutes. Follow up in 3 months. Orders: Orders AMB Hemoglobin A1c Today HEATHER Sotelo E11.65 - Type 2 diabetes mellitus with hyperglycemia Creatinine 3 Months HEATHER Sotelo E11.9 - Type 2 diabetes mellitus without complications Aspartate Amino Transferase 3 Months HEATHER Sotelo E11.9 - Type 2 diabetes mellitus without complications Hemoglobin A1c 3 Months HETAHER Sotelo E11.9 - Type 2 diabetes mellitus without complications, R73.9 - Hyperglycemia, unspecified Microalbumin, Random (w Creat) 3 Months HEATHER Sotelo E11.9 - Type 2 diabetes mellitus without complications Alanine Aminotransferase 3 Months HEATHER Sotelo E11.9 - Type 2 diabetes mellitus without complications Lipid Panel 3 Months HEATHER Sotelo E11.9 - Type 2 diabetes mellitus without complications, E78.5 - Hyperlipidemia, unspecified AMB Glucose Monitoring Today HEATHER Sotelo E11.9 - Type 2 diabetes mellitus without complications Medications: Changed From insulin glargine U-300 conc (Toujeo Max U-300 SoloStar) 80 units (0.2667 mL) subcut DAILY 12 mL 4RF To insulin glargine U-300 conc (Toujeo Max U-300 SoloStar) 76 units subcut DAILY Kim Aldridge MD Coding Level of Care Code Est Pt Level 4 (88064) Diagnoses Controlled type 2 diabetes mellitus E11.9 Pure hypercholesterolemia E78.00 Essential hypertension I10 CPT Codes Details - CPT: 11464 - Glucose monitoring, continuous-physician I&R ([id number])
[2025-07-28 08:25] VITALS: BP 122/68; PULSE 86; BMI 36.0
--- OUTSIDE RECORDS SUMMARY | 2025-07-28 08:28 | XMS_ITS | Clinical Summary ---
Author Organization [facility] Address [address] [place] [address] Phone Care Team Providers Care Music Publisher Name Role Phone Jade Fernandez BUSINESS LIAISON MANAGER Primary Care Provider Allergies Active Allergy Reactions [...] AM EST Office Visit Orthopedic Surgery - [place] [id number] [id number] Mike Dutta, DPSimone [address] [address] Health Maintenance Due Date Last Done Comments [...] patient's age to complete this topic Insurance [facility] Care Teams Music Publisher Relationship Specialty Start Date End Date Jade Fernandez NP [address] [facility] [place] [place] [address] PCP - General Nurse Practitioner 02/12/25
--- OUTSIDE RECORDS SUMMARY | 2025-07-28 08:28 | XMS_ITS | Patient Health Record ---
Author Organization [facility] Address [address] [place] [address] Care Team Providers Care Jukebox Checker Name Role Phone Jim TOP FRAME MAKER, Jade Primary Care Provider Unavail able Christal Helm Unavailable [phone] Reason For Referral No Information Encounters Encounter Location Date Provider Diagnosis [facility] [address] [place] [address] 08/19/2024 Christal Helm Plan Of Treatment No Information Insurance Providers Payer Name Payer Address Payer Phone Subscriber Number Group Number Insured Name Patient Relationship to Insured Coverage Start Date Coverage End Date [facility] [address] [facility] [address] [phone] [id number] Katya Islas Self - patient is the insured
[2025-07-28 08:38] LABS: Glucose, Whole Blood 163 mg/dL (60-115)
== END 2025-07-28 09:09 | disposition home or self-care (01) ==
LOC: HO.ENCR 08:20
PROVIDERS: PCP Nurse Practitioner Family; Visit Provider Physician Assistant Medical
DX: E11.9 Type 2 diabetes mellitus without complications (principal); E78.00 Pure hypercholesterolemia, unspecified; I10 Essential (primary) hypertension; E11.65 Type 2 diabetes mellitus with hyperglycemia

== ENCOUNTER → 2025-07-28 08:20 | Outpatient (BNVA) | payer BC, SELFPAY | PROVIDERS: PCP Nurse Practitioner Family; Visit Provider Physician Assistant Medical | DX: E11.649 Type 2 diabetes mellitus with hypoglycemia without coma (principal); E78.5 Hyperlipidemia, unspecified; I10 Essential (primary) hypertension; Z79.85 Long-term (current) use of injectable non-insulin antidiabetic drugs; Z79.899 Other long term (current) drug therapy; Z79.4 Long term (current) use of insulin; Z79.84 Long term (current) use of oral hypoglycemic drugs; Z87.891 Personal history of nicotine dependence | CPT/HCPCS: 82947; 83036 ==